=== PATIENT | female | born 1960 | race Caucasian/White ===

== ENCOUNTER 2020-02-07 14:32 | Emergency (ER) | payer OTHER, SELFPAY ==
[2020-02-07] VITALS (7 sets, daily range): BP systolic 127–145; BP diastolic 75–94; PULSE 84–104; RESP 16–20; TEMP 37.2; O2SAT 98–100
--- NOTE | ~2020-02-07 | XR_ITS ---
EXAMINATION: XR chest 2V EXAM DATE: 02/07/2020 17:07 INDICATION: Chest heaviness, nausea and vomiting. Fatigue for 5 days. TECHNIQUE: Frontal and lateral projections of the chest obtained and reviewed. Comparison is made to prior examination from 05/03/2016. FINDINGS: The lungs are clear. There are no pleural effusions. The cardiomediastinal silhouette is within normal limits. There is no pneumothorax suspected. The bones and soft tissues are unremarkab le. IMPRESSION: Normal chest x-ray exam. Reviewed, dictated and finalized at location A. IMPRESSION: Normal chest x-ray exam.
--- NOTE | ~2020-02-07 | CT_ITS ---
EXAMINATION: CT abdomen pelvis w con EXAM DATE: 02/07/2020 17:02 INDICATION: Nausea vomiting and epigastric pain. TECHNIQUE: Spiral CT of the abdomen and pelvis was performed following intravenous injection of 100 m L Omnipaque 350. Axial, coronal and sagittal images were reviewed. The dose-length product (DLP) fo r this examination was 653.98 mGy-cm. The exposure was tailored according to patient size (auto mA e xposure control), and iterative reconstruction (ASIR) was used as additional dose reduction technique . There is no prior study for comparison. FINDINGS: The liver, spleen, adrenal glands and pancreas are unremarkable. Gallbladder is unremarkab le. No biliary obstruction. Portal and splenic veins are patent. Kidneys enhance symmetrically. T here is no hydronephrosis. The uterus is anteverted and morphologically normal. The bladder is un remarkable. There is no retroperitoneal or pelvic lymphadenopathy. The appendix is normal. The stomach and small bowel are unremarkable. There is expected amount of c olonic stool. No free intraperitoneal gas. The heart is normal in size. There are no pericardial or pleural effusions. The lung bases are unremarkable. The bones are unremarkable. IMPRESSION: 1. No acute intra-abdominal findings. Reviewed, dictated and finalized at location A.
[2020-02-07 14:55] LABS: Basophils Percent Auto 0.4 % (0.2-1.2); Eosinophils Absolute Auto 0.2 K/mm3 (0-0.3); Eosinophils Percent Auto 2.5 % (0-4.4); Hematocrit 44.7 % (37.0-47.0); Hemoglobin 14.7 g/dL (12.0-15.0); Immature Granulocyte Absolute 0.01 K/mm3 (0.00-0.031); Immature Granulocyte Percent A 0.1 % (0-0.5); Lymphocytes Absolute Auto 2.63 K/mm3 (0.9-3.2); Lymphocytes Percent Auto 36.6 % (18.3-44.2); Mean Corpuscular HGB Conc 32.9 g/dl (32-36); Mean Corpuscular Hemoglobin 31.1 pg (26-34); Mean Corpuscular Volume 94.5 fl (80-100); Mean Platelet Volume 9.9 fl (7.4-10.4); Monocytes Absolute Auto 0.6 K/mm3 (0.1-0.6); Monocytes Percent Auto 7.7 % (2.6-8.5); Neutrophils Absolute Auto 3.8 K/mm3 (1.3-6.7); Neutrophils Percent Auto 52.7 % (45.5-73.1); Platelet Count Result 279 k/mm3 (150-375); Red Blood Count 4.73 M/mm3 (4.2-5.4); Red Cell Distribution Width 13.1 % (11.5-14.5); White Blood Count 7.2 K/mm3 (4.5-10.0)
[2020-02-07 15:00] LABS: Add Urine Microscopic? YES; Appearance Urine Clear (Clear); Bacteria Urine Trace /hpf; Bilirubin Urine Negative (Negative); Color Urine Yellow (Yellow); Glucose Urine UA Negative (Negative); Ketones Urine Negative (Negative); Leukocyte Esterase Ur 3+ LEU/UL (Negative); Mucus Urine Rare /lpf; Nitrate Urine Negative (Negative); Protein Urine 1+ mg/dL (Negative); RBC Urine 0-2 /hpf (0-2); Specific Grav Ur 1.023 (1.001-1.035); Squamous Epithelial Cell Urine Many /hpf (Few); Urobilinogen Urine Negative mg/dL (<2.0); WBC Urine 21-30 /hpf
[2020-02-07 15:02] LABS: Blood Urine Negative (Negative)
[2020-02-07 15:07] LABS: Alanine Aminotransferase 24 U/L (4-35); Albumin Level 4.3 g/dL (3.5-5.1); Alkaline Phosphatase 80 U/L (38-126); Aspartate Amino Transferase 30 U/L (14-36); Bilirubin,Total 0.5 mg/dL (0.2-1.3); Blood Urea Nitrogen 18 mg/dL (7-17); Calcium 9.1 mg/dL (8.4-10.2); Carbon Dioxide 30 mmol/L (22-30); Chloride 104 mmol/L (98-107); Estimated CRCL calculation 61 ml/min; Estimated Glomerular Filt Rate > 60; Glucose 90 mg/dL (65-105); Lipase 45 U/L (23-300); Sodium 139 mmol/L (137-145)
--- NOTE | 2020-02-07 15:24 | ECG_ITS ---
Measurements Intervals [place] Rate: 79 P: 20 MD: 174 QRS: 11 QRSD: 96 T: 23 QT: 352 QTc: 405 Interpretive Statements SINUS RHYTHM INCOMPLETE RIGHT BUNDLE BRANCH BLOCK BORDERLINE ECG Electronically Signed On 02-07-2020 20:07:57 CDT by Sawyer Nair D.O.
[2020-02-07 15:52] LABS: Troponin I < 0.012 ng/mL (0.000-0.034)
--- NOTE | 2020-02-07 16:43 | ED.NAVMDI ---
HPI - Nausea/Vomiting/Diarrhea General Chief complaint: Nausea/Vomiting/Diarrhea Stated complaint: nausea/gi upset Time Seen by Provider: 02/07/20 15:00 Source: patient Mode of arrival: ambulatory Limitations: no limitations History of Present Illness HPI Narrative: This is a 59 year old female that presents to the ER for nausea and vomiting x 1 week. Reports nightly over the last couple of days she has been having some heartburn symptoms. Reports burning pain that radiates into her chest. Reports it is also associated with some nausea. She has not taken anything for her pain. Happens at night when she is getting ready to go to sleep. Also reports she has had some urinary discomfort. Denies fever, shortness of breath, diarrhea, hematuria. Related Data Home Medications Medication Instructions Recorded Confirmed levothyroxine 75 mcg PO DAILY 02/07/20 metformin 500 mg PO HS 02/07/20 progesterone micronized 200 mg PO HS 02/07/20 testosterone cypionate 200 mg IM [id number] 02/07/20 Allergies Allergy/AdvReac Type Severity Reaction Status Date / Time No Known Allergies Allergy Verified 02/07/20 14:34 Review of Systems Review of Systems: Narrative: CONSTITUTIONAL: Denies fever CARDIOVASCULAR: Reports chest pain. Denies palpitations, or edema. RESPIRATORY: Denies dyspnea. GASTROINTESTINAL: Reports abdominal pain, nausea, vomiting GENITOURINARY: Reports dysuria. Denies hematuria. All systems reviewed & are unremarkable except as noted in HPI and below PMFSH Past Medical History Medical History (Updated 02/07/20 @ 19:18 by Sushila Johnson PA-C) History of diabetes mellitus History of hypothyroidism Family History Family History (Updated 12/25/17 @ 13:11 by DOCTOR UNKNOWN) Mother Family history of osteoporosis Family history of Alzheimer's disease Family history of dementia, Onset Age: 80 Father Hypertension Family history of elevated blood lipids Family history of cardiovascular disease Family history of renal failure Family history of kidney disease, Onset Age: 75 Sibling Family history of cardiovascular disease Social History Social History Smoking status: Never smoker Alcohol intake: current Gender identity (if verbalized by the patient): Female Exam Narrative: Exam Narrative: GENERAL: Well-appearing, obese, and in no acute distress. HEAD: Normocephalic, atraumatic. EYES: EOMI. NECK: No carotid bruits or JVD CHEST: Clear to auscultation. No respiratory distress. No wheezes rales or rhonchi HEART: Regular rate and rhythm. No murmur heard. Normal peripheral pulses. ABDOMEN: Soft, nondistended, normal active bowel sounds. Mild tenderness to palpation of the epigastrium, without guarding EXTREMITIES: Normal range of motion. No edema. SKIN: Warm, dry, no rash. NEURO: No focal deficits. Alert and oriented x3. PSYCH: Normal mood and affect Course Vital Signs Vital signs: Vital Signs Temperature 99 F 02/07/20 14:33 Pulse Rate 98 02/07/20 14:33 Respiratory Rate 18 02/07/20 14:33 Blood Pressure 145/86 H 02/07/20 14:33 Pulse Oximetry 100 02/07/20 14:33 Temperature 99 F 02/07/20 14:33 Pulse Rate 90 02/07/20 19:01 Respiratory Rate 16 02/07/20 19:01 Blood Pressure 131/83 02/07/20 19:01 Pulse Oximetry 100 02/07/20 19:01 MDM - Nausea/Vomiting/Diarrhea MDM Narrative Medical decision making narrative: Patient presents the emergency department for heartburn. Reports nightly over the last couple of days she has been having heartburn symptoms. Reports that is been making her nauseous. Also reports some vomiting. She has not been taking anything for this at home. Patient is afebrile and nontoxic-appearing. Vitals are normal. CBC and metabolic panel without acute findings. UA with white blood cells and leukoesterase. Also with many squamous epithelial cells, unsure if this was not a clean-catch. Patient did report so
[2020-02-07 18:52] LABS: Troponin I < 0.012 ng/mL (0.000-0.034)
== END 2020-02-07 19:55 | disposition home or self-care (01) ==
PROVIDERS: Physician Assistant; Emergency Provider Emergency Medicine; PCP Family Medicine
DX: N30.00 Acute cystitis without hematuria (principal); K21.9 Gastro-esophageal reflux disease without esophagitis; E11.9 Type 2 diabetes mellitus without complications; E03.9 Hypothyroidism, unspecified; Z79.84 Long term (current) use of oral hypoglycemic drugs; I45.10 Unspecified right bundle-branch block
CPT/HCPCS: 36415; 71046; 74177; 80053; 81001; 83690; 84484; 85025; 87086; 87088; 93005; 99284; Q9967

== ENCOUNTER 2020-10-04 09:10 | Outpatient (CLI) | payer OTHER, SELFPAY ==
--- NOTE | 2020-10-27 15:50 | WPDHOMESLEEP ---
Sleep Study - Home Unattended Date of Study: 10/04/20 Ordering Provider: Niecy Borja, BATTERY RECHARGER Interpreting Provider: Tessie Rebolledo MD [facility] Sleep Study Type: Apnea Link Air Height: 1.52 m Weight: 83.915 kg Body Mass Index: 36.1 Neck Circumference (inches): 17.5 [place]: 15 Reason for Sleep Study She falls asleep quickly, cannot stay asleep, wakes herself up snoring Sleep History Moira Cuevas is a 60-year-old female who falls asleep quickly but cannot stay asleep. She can hear herself snoring and this wakes her up. She has had this problem for years. Her dentist tells her that she grinds her teeth. SHe is sleepy around 3:00 p.m. daily, and takes a 30 minute nap when she is able. She drinks Sleepy Time tea at night. Her snoring is frequently loud enough that others complain about it. She occasionally awakens at night with heartburn, belching or coughing. She does not awaken from sleep feeling short of breath. She rarely has trouble sleep with a cold. She does not gasp for breath at night. She does not have breathing problems at night reported to her by others. She constantly sweats excessively at night. She does not notice her heart pounding or beating irregularly at night. She frequently falls asleep during the day, not involuntarily and not while driving. She does not fall asleep while exerting physical effort. She does not have loss of muscle tone was strong emotion. 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 She frequently has vivid dreamlike scenes upon awakening or falling asleep. She is not afraid to go to sleep. She does not have nightmares. She frequently remembers her dreams. She frequently has racing thoughts. She does not feel sad or depressed. She frequently has anxiety. She frequently has muscular tension. She does not notice parts of her body jerking, does not kick at night, does not have crawling and aching feelings in her legs at night and does not have any kind of leg pain during the night. She frequently has morning jaw pain. She frequently grinds her teeth at night which has been confirmed by her dentist. She rarely is bothered by pain during the day, rarely is awakened by pain at night. She occasionally wakes up feeling stiff in the morning, rarely with sore or achy muscles. She frequently wakes up with pain in the neck and spine. She has fatigue and headaches. She has gained 8 lb in the last year. Normal bedtime is 9:00 p.m. usually falling asleep within 5 minutes, waking up between 4 and 6 times at night to urinate, get a drink of water, may watch television for a while. She wakes up at times feeling hot or coughing. These episodes of wake may last 15-20 minutes. her weekend schedule is the same, going to bed at 9:00 p.m. sometimes waking up at 7:00 a.m. or after. She estimates getting 7-8 hours of interrupted sleep. she takes naps in the afternoon or evening. A short nap may be refreshing. She is usually drowsy in the morning for 1 hour or longer. She frequently wakes with morning headaches. She occasionally has memory and concentration problems. She rarely awakens feeling refreshed. Habits: Never smoked tobacco. Caffeine 2 cups in the morning. Decaf tea before bed. Alcohol rarely once a week. No recreational drugs. [facility] Past Medical History Medical History (Updated 10/27/20 @ 16:20 by Tessie Rebolledo MD) History of diabetes mellitus History of hypothyroidism Surgical History Surgical History (Updated 10/27/20 @ 16:17 by Tessie Rebolledo MD) S/P section 1986, 1987 Family History Family History Mother Family history of osteoporosis Family history of Alzheimer's disease Family history of dementia, Onset Age: 80 Father Hypertension Family history of elevated blood li
[2020-10-27 16:10] VITALS: BMI 36.1
== END 2020-10-04 09:11 | disposition home or self-care (01) ==
LOC: ANHCSM 09:11
PROVIDERS: PCP Family Medicine; Visit Provider Nurse Practitioner Family
DX: G47.33 Obstructive sleep apnea (adult) (pediatric) (principal); R53.83 Other fatigue
CPT/HCPCS: 95806

== ENCOUNTER 2021-04-12 17:19 | Emergency (ER) | payer OTHER, SELFPAY ==
--- NOTE | ~2021-04-12 | XR_ITS ---
EXAMINATION: XR foot LT min 3V DATE: 04/12/2021 17:35 INDICATION: Left foot pain post twisting injury TECHNIQUE: Dorsoplantar, two oblique and lateral views of the left foot were obtained. COMPARISON: None. FINDINGS: Alignment is normal. No fracture. Mild polyarticular osteoarthritis involving multiple joints through out the left foot. Achilles and plantar calcaneal spurs. Soft tissues are unremarkable. No left ankle joint effusion. IMPRESSION: 1. Mild polyarticular osteoarthritis throughout the left foot. No acute osseous abnormality. Reviewed, dictated and finalized at location A.
[2021-04-12 17:24] VITALS: BP 132/83; PULSE 106; RESP 16; TEMP 37.1; O2SAT 99
--- NOTE | 2021-04-12 17:54 | ED.LOWEXIN ---
HPI - Extremity Injury (Lower) General Chief Complaint: Extremity Injury, Lower Stated Complaint: INJURED L FOOT Time Seen by Provider: 04/12/21 17:35 Source: patient and RN notes reviewed Mode of arrival: ambulatory Limitations: no limitations History of Present Illness HPI Narrative: Patient presents today complaining of an injury to her left foot x1 week. Patient reports she lost her footing and rolled her left foot and has pain to the medial aspect. She denies pain at rest, but this pain increases to 4/10 with weightbearing. She has been applying ice and taking Tylenol without much relief. Denies numbness or tingling. complaint: foot injury Related Data Allergies Allergy/AdvReac Type Severity Reaction Status Date / Time No Known Allergies Allergy Verified 11/10/20 09:32 Review of Systems Review of Systems: CONSTITUTIONAL: Denies body aches, fever, chills, or sweats. EYES: Denies visual changes, redness, or discharge. ENT: Denies rhinorrhea, congestion, sore throat, or otalgia. CARDIOVASCULAR: Denies chest pain, palpitations, or edema. RESPIRATORY: Denies cough or dyspnea. GASTROINTESTINAL: Denies abdominal pain, nausea, vomiting, or diarrhea. GENITOURINARY: Denies dysuria or hematuria. SKIN: Denies rash, itching, or wounds. MUSCULOSKELETAL: Denies back pain, or myalgia. + Left foot injury NEUROLOGIC: Denies headache, numbness, tingling, or weakness. PSYCH: Denies depression or anxiety. [facility] Past Medical History Medical History History of diabetes mellitus History of hypothyroidism Surgical History Surgical History S/P section 1986, 1987 Family History Family History Mother Family history of osteoporosis Family history of Alzheimer's disease Family history of dementia, Onset Age: 80 Father Hypertension Family history of elevated blood lipids Family history of cardiovascular disease Family history of renal failure Family history of kidney disease, Onset Age: 75 Sibling Family history of cardiovascular disease Social History Social History Smoking status: Never smoker Alcohol intake: current Gender identity (if verbalized by the patient): Female Comments At time of signature, I have reviewed and agree with nursing past medical, surgical, social and family history unless otherwise noted. Please see nursing chart for further information. There is no relevant family history pertinent to the presenting complaint Exam Narrative: GENERAL: Well-appearing, well-nourished, and in no acute distress. HEAD: Normocephalic, atraumatic. EYES: EOMI. No redness or drainage. Conjunctivae normal. ENT: Mucous membranes pink and moist. NECK: Normal AROM. CHEST: No respiratory distress. EXTREMITIES: Left foot: Mild tenderness to the base of the fifth metatarsal with dime size localized swelling without ecchymosis or erythema noted. No deformity noted. Distal sensation intact. Capillary refill normal. Pedal pulse normal. Full range of motion of all toes and ankle. No tenderness to the remainder of the foot. SKIN: Warm, dry, no rash. Capillary refill normal. Normal skin turgor. NEURO: No focal deficits. Alert and oriented x3. Gait steady. PSYCH: Normal affect. No signs of depression or anxiety. Course Vital Signs Vital signs: Vital Signs Temperature 98.7 F 04/12/21 17:24 Pulse Rate 106 H 04/12/21 17:24 Respiratory Rate 16 04/12/21 17:24 Blood Pressure 132/83 04/12/21 17:24 Pulse Oximetry 99 04/12/21 17:24 Temperature 98.7 F 04/12/21 17:24 Pulse Rate 106 H 04/12/21 17:24 Respiratory Rate 16 04/12/21 17:24 Blood Pressure 132/83 04/12/21 17:24 Pulse Oximetry 99 04/12/21 17:24 Revi
== END 2021-04-12 18:04 | disposition home or self-care (01) ==
PROVIDERS: Emergency Provider Nurse Practitioner; PCP Family Medicine
DX: S93.602A Unspecified sprain of left foot, initial encounter (principal); X50.9XXA Other and unspecified overexertion or strenuous movements or postures, initial encounter; E11.9 Type 2 diabetes mellitus without complications; E03.9 Hypothyroidism, unspecified
CPT/HCPCS: 73630; 99213; G0463

== ENCOUNTER 2021-04-27 10:27 | Outpatient (CLI) | payer OTHER, SELFPAY ==
--- NOTE | ~2021-04-27 | XR_ITS ---
EXAMINATION: XR foot LT min 3V DATE: 04/27/2021 10:59 INDICATION: Lateral sided left foot pain. TECHNIQUE: Dorsoplantar, two oblique and lateral views of the left foot were obtained. COMPARISON: 04/12/2021 FINDINGS: Alignment is normal. No fracture. Again seen is mild polyarticular osteoarthritis involving multiple joints throughout the left foot. No erosions or periosteal reaction. Moderate-sized Achilles and smal l plantar calcaneal spurs. Soft tissues are unremarkable. IMPRESSION: 1. Mild polyarticular osteoarthritis throughout the left foot. No acute osseous abnormality. Reviewed, dictated and finalized at location B.
== END 2021-04-27 10:28 | disposition home or self-care (01) ==
LOC: ANHIMG 10:32
PROVIDERS: PCP Family Medicine; Visit Provider Family Medicine
DX: M19.072 Primary osteoarthritis, left ankle and foot (principal); M79.672 Pain in left foot
CPT/HCPCS: 73630

== ENCOUNTER 2021-05-13 08:08 | Outpatient (CLI) | payer OTHER, SELFPAY ==
--- NOTE | ~2021-05-13 | MM_ITS ---
EXAMINATION: MM screening [place] BI w nuvia HISTORY: Screening mammogram TECHNIQUE: Craniocaudal and mediolateral oblique 3-D tomosynthesis images were obtained and synthetic 2-D images were generated. CAD analysis was submitted and interpreted. COMPARISON: 08/14/2019, 12/19/2017, 09/07/2016 bilateral digital screening mammogram examinations BREAST PARENCHYMAL COMPOSITION: There are scattered areas of fibroglandular density. FINDINGS: There is no evidence of suspicious mass, calcification, or architectural distortion to sugg est malignancy in either breast. There has been no suspicious interval change. IMPRESSION: 1. No mammographic evidence of malignancy. 2. Recommend routine screening mammography in one year. BI-RADS Category 1: Negative Reviewed, dictated and finalized at location A.
--- NOTE | ~2021-05-13 | DEXA_ITS ---
Bone Density Report Name: Moira Cuevas Age: 60 Sex: Female Ethnicity: White Date of : 1960 Indication: osteopenia; parental hip fracture; postmenopausal Referring Provider: Severo, Sowmya Montoya Study: Bone densitometry was performed. Exam Date: May 13, 2021 Accession number: [id number] Bone Density: Region BMD T-score Z-score Classification AP Spine (L1-L4) 0.879 -1.5 0.0 Osteopenia Femoral Neck (Left) 0.669 -1.6 -0.3 Osteopenia Total Hip (Left) 0.794 -1.2 -0.2 Osteopenia Total Hip Bilateral Avg 0.812 -1.0 -0.1 Osteopenia Femoral Neck (Right) 0.656 -1.7 -0.4 Osteopenia Total Hip (Right) 0.828 -0.9 0.1 Normal World Health Organization criteria for BMD impression classify patients as: Normal (T-score at or above -1.0), Osteopenia (T-score between -1.0 and -2.5), or Osteoporosis (T-score at or below -2.5). 10-year Fracture Risk(1): Major Osteoporotic Fracture 16% Hip Fracture 0.9% Reported Risk Factors: [place] (), Neck BMD=0.656, BMI=35.7, parental fracture (1) FRAX(R) Version 3.08. Fracture probability calculated for an untreated patient. Fracture probability may be lower if the patient has received treatment. Previous Exams: Region Exam Age BMD T-score BMD Change BMD Change Date g/cm2 vs Baseline vs Previous AP Spine(L1-L4) 05/13/2021 60 0.879 -1.5 -0.175(-16.6%) -0.038(-4.2%)* 12/19/2017 57 0.917 -1.2 -0.137(-13.0%) -0.137(-13.0%) 09/21/2005 45 1.054 0.1 Total Hip(Left) 05/13/2021 60 0.794 -1.2 -0.037(-4.4%)# -0.089(-10.1%) 12/19/2017 57 0.883 -0.5 0.052(6.3%)# 0.052(6.3%)# 09/21/2005 45 0.831 -0.9 Total Hip(Right) 05/13/2021 60 0.828 -0.9 -0.023(-2.7%)# -0.062(-7.0%)* 12/19/2017 57 0.890 -0.4 0.039(4.6%)# 0.039(4.6%)# 09/21/2005 45 0.851 -0.7 *Denotes significance at 95% confidence level, LSC for AP Spine = 0.022 g/cm2, LSC for Total Hip = 0.027 g/cm2 Clinical Information Provided by Patient: Parent has had a hip fracture Has used the following medications: Vitamin D, Calcium Patient maximum height was 59.5 Menopause Age: 57 Drinks caffeinated beverages Onset of menses at age 12 Number of children 2 Impression: The patient has low bone mass, based on the Right Femoral Neck T-score. The patient has an estimated ten-year risk of hip fracture of 0.9% and an estimated ten-year risk of major fracture of 16%, based on the WHO FRAX algorithm. The patient has risk fact
== END 2021-05-13 08:09 | disposition home or self-care (01) ==
PROVIDERS: PCP Family Medicine; Visit Provider Internal Medicine Endocrinology, Diabetes & Metabolism
DX: Z12.31 Encounter for screening mammogram for malignant neoplasm of breast (principal); Z78.0 Asymptomatic menopausal state; M85.89 Other specified disorders of bone density and structure, multiple sites
CPT/HCPCS: 77063; 77067; 77080

== ENCOUNTER 2021-08-08 09:16 | Outpatient (RCR) | payer OTHER, SELFPAY ==
[2021-08-08 14:22] VITALS: BP 129/85; PULSE 101; RESP 16; TEMP 36.6; O2SAT 100
[2021-08-08] MEDS: diphenhydrAMINE HCl CAP 25 MG CAPSULE PO (14:27)
[2021-08-08] MEDS: ACETAMINOPHEN 325 MG TABLET 650 MG PO (14:27)
[2021-08-08] MEDS: FAMOTIDINE 20 MG TABLET PO (14:28)
[2021-08-08 15:51] VITALS: BP 122/68
--- NOTE | 2021-08-09 10:29 | PC.NURSE ---
Called Ms Cuevas and she stated she is feeling much better today. She has no other questions at this time.
== END 2021-08-08 17:00 ==
LOC: AMCINF 09:16
PROVIDERS: PCP Physician Assistant; Visit Provider Internal Medicine Hematology & Oncology
DX: U07.1 COVID-19 (principal)
CPT/HCPCS: A9270; M0243; Q0243

== ENCOUNTER 2022-03-10 11:19 | Emergency (ER) | payer OTHER, SELFPAY ==
--- NOTE | 2022-03-10 11:25 | ED.SKABFB ---
HPI - Skin/Abscess/Foreign Bdy General Chief complaint: Skin/Abscess/Foreign Body Stated complaint: RASH Time Seen by Provider: 03/10/22 11:32 Source: patient and RN notes reviewed Mode of arrival: ambulatory Limitations: no limitations History of Present Illness HPI narrative: 61-year-old female presents to the [facility] with left wrist volar aspect rash since Sunday, 3 days. Has been washing it with bleach, placing hydrocortisone on it, taking Benadryl. Also has the rash to her left lower abdomen and under her chin. MD complaint: rash Related Data Home Medications Medication Instructions Recorded Confirmed semaglutide 0.25 mg or 0.5 mg (2 1 ea subcut WEEKLY 03/10/22 03/10/22 mg/1.5 mL) subcutaneous pen injector (Brand [employer]mp[employer]) Allergies Allergy/AdvReac Type Severity Reaction Status Date / Time No Known Allergies Allergy Verified 03/10/22 11:37 Review of Systems Review of Systems: All systems reviewed & are unremarkable except as noted in HPI and below Constitutional: Constitutional: Reports no additional constitutional complaints, Denies chills and Denies fever(s) Eyes: Eyes: Reports no additional eye complaints ENT: Reports system reviewed and no additional complaints, except as documented Cardiovascular: Cardiovascular: Reports no additional cardiovascular complaints Respiratory: Respiratory: Reports no additional respiratory complaints Gastrointestinal: Gastrointestinal: Reports no additional gastrointestinal complaints Musculoskeletal: Musculoskeletal: Reports no additional musculoskeletal complaints Integumentary/Breasts: Skin/Breast: Reports as per HPI, Reports pruritus and Reports rash Neurologic: Reports system reviewed and no additional complaints, except as documented Psychiatric: Psychiatric: Reports no additional psychiatric complaints Allergic/Immunologic: Allergic/Immunologic: Reports no additional allergic/immunologic complaints [facility] Past Medical History Medical History History of diabetes mellitus History of hypothyroidism Surgical History Surgical History S/P section 1986, 1987 Family History Family History Mother Family history of osteoporosis Family history of Alzheimer's disease Family history of dementia, Onset Age: 80 Father Hypertension Family history of elevated blood lipids Family history of cardiovascular disease Family history of renal failure Family history of kidney disease, Onset Age: 75 Sibling Family history of cardiovascular disease Social History Social History Alcohol intake: current Gender identity (if verbalized by the patient): Female Spiritual care concerns: No Comments At the time of my signature, I reviewed and agree with the nursing past medical, surgical, social, and family history. There is no relevant family history pertinent to the patient complaint. Exam Const: General: healthy appearing, no acute distress and alert Nutritional Appearance: well nourished and obese Orientation/consciousness: patient oriented x3 Limitations: no limitations HENMT: Head: normal to inspection Ears: external ears normal Face and sinus: normal facial exam Mouth: Yes Normal oral and palatal mucosa present Throat: posterior oropharynx normal Eyes: General: appearance normal, both eyes and all related structures Pupils: Equal, round and reactive pupils present Neck: Neck: normal visual inspection, no lymphadenopathy and no meningeal signs Chest: Chest palpation & inspection: normal inspection of the chest Resp: Effort & Inspection: normal respiratory effort and no use of accessory muscles Auscultation: clear to auscultation bilaterally, no crackles, no rales, no rhonchi and no wheezes
[2022-03-10 11:37] VITALS: BP 137/98; PULSE 82; RESP 16; TEMP 36.8; O2SAT 100
[2022-03-10 11:38] VITALS: BP 137/98; PULSE 82; RESP 16; TEMP 36.8; O2SAT 100
== END 2022-03-10 11:55 | disposition home or self-care (01) ==
PROVIDERS: Emergency Provider Nurse Practitioner; PCP Family Medicine
DX: L25.9 Unspecified contact dermatitis, unspecified cause (principal); L23.7 Allergic contact dermatitis due to plants, except food; S00.86XA Insect bite (nonvenomous) of other part of head, initial encounter; W57.XXXA Bitten or stung by nonvenomous insect and other nonvenomous arthropods, initial encounter; E11.9 Type 2 diabetes mellitus without complications; E03.9 Hypothyroidism, unspecified
CPT/HCPCS: 99213; G0463

== ENCOUNTER → 2022-08-23 12:49 | Outpatient (CLI) | payer OTHER, SELFPAY ==
--- NOTE | ~2022-08-23 | XR_ITS ---
Clinical Indication: Bronchitis, cough PA and lateral views of the chest: Comparison: 02/07/2020 Findings: The lungs are clear, without evidence of focal consolidation or pleural effusion. Cardiome diastinal silhouette is within normal limits. Bones and soft tissues are unremarkable. Impression: Normal chest. Reviewed, dictated and finalized at location . [employer] Impression: Normal chest.
== END ==
PROVIDERS: PCP Nurse Practitioner; Visit Provider Nurse Practitioner
DX: R05.9 Cough, unspecified (principal); J40 Bronchitis, not specified as acute or chronic
CPT/HCPCS: 71046

== ENCOUNTER 2023-01-26 12:30 | Emergency (ER) | payer OTHER, SELFPAY ==
--- NOTE | 2023-01-26 12:32 | ED.URI ---
HPI - URI/Sore Throat General Chief Complaint: Upper Respiratory Infection Stated Complaint: SINUS CONGESTION Time Seen by Provider: 01/26/23 12:32 Source: patient Mode of arrival: ambulatory Limitations: no limitations History of Present Illness HPI Narrative: Patient is a 62-year-old female that presents with sinus congestion that started this morning. Patient took at home COVID test and it was negative. Denies any fever, chills, ear pain, sore throat, cough, nausea, vomiting, diarrhea. Has taken [id number] Tylenol cold and flu with mild relief. Does not take a daily allergy medicine Related Data Home Medications Medication Instructions Recorded Confirmed cholecalciferol (vitamin D3) 50 50 mcg PO DAILY 07/06/22 01/26/23 mcg (2,000 unit) capsule metformin 500 mg tablet,extended 500 mg PO DAILY 07/06/22 01/26/23 release 24hr multivitamin (Daily Multi-Vitamin 1 tablet PO DAILY 07/06/22 01/26/23 tablet) vitamin B complex (B 1 tablet PO DAILY 07/06/22 01/26/23 Complex-Vitamin B12 tablet) Allergies Allergy/AdvReac Type Severity Reaction Status Date / Time No Known Allergies Allergy Verified 01/26/23 12:47 Review of Systems Review of Systems: All systems reviewed & are unremarkable except as noted in HPI and below Constitutional: Constitutional: Denies body ache(s), Denies chills, Denies fatigue, Denies fever(s), Denies headache(s), Denies malaise and Denies weakness Eyes: Eyes: Denies blurry vision, Denies irritation and Denies loss of vision ENT: Denies otalgia, Denies headache(s), Reports nasal congestion, Denies nasal discharge, Denies sinus pain and Denies sore throat Cardiovascular: Cardiovascular: Denies chest pain, Denies irregular heart rhythm and Denies dyspnea Respiratory: Respiratory: Denies cough and Denies dyspnea Gastrointestinal: Gastrointestinal: Denies abdominal pain, Denies melena, Denies hematochezia, Denies diarrhea, Denies nausea and Denies vomiting Musculoskeletal: Musculoskeletal: Denies back pain, Denies myalgias and Denies arthralgias Integumentary/Breasts: Skin/Breast: Denies pruritus and Denies rash Neurologic: Denies headache(s), Denies loss of vision and Denies weakness Psychiatric: Psychiatric: Reports no additional psychiatric complaints Endocrine: Endocrine: Denies fatigue Allergic/Immunologic: Allergic/Immunologic: Denies itchy eyes PMFSH Past Medical History Medical History History of diabetes mellitus History of hypothyroidism Surgical History Surgical History S/P section 1986, 1987 Family History Family History Mother Family history of osteoporosis Family history of Alzheimer's disease Family history of dementia, Onset Age: 80 Father Hypertension Family history of elevated blood lipids Family history of cardiovascular disease Family history of renal failure Family history of kidney disease, Onset Age: 75 Sibling Family history of cardiovascular disease Social History Social History Smoking status: Never smoker Alcohol intake: current Alcohol use details: socially Substance use: never Substance use type: does not use Lack of Transportation: No Lack of Food: Never True Current Housing: I Have Housing Concerned About Future Housing: No Difficulty Paying Gas/Electric Bills: No Difficulty Paying for Meds: No Currently Unemployed: No Education: Associate Degree Difficulty w/ Childcare or Family Care: No Living arrangements: with family Occupation/Education: occupation Gender identity (if verbalized by the patient): Female Sexual Orientation (if Verbalized by the Patient): Straight or Heterosexual Spiritual care concerns: No Agree to blood produ
[2023-01-26 12:44] VITALS: BP 155/87; PULSE 98; RESP 16; TEMP 36.4; O2SAT 100
== END 2023-01-26 13:44 | disposition home or self-care (01) ==
PROVIDERS: Emergency Provider Nurse Practitioner Family; PCP Family Medicine
DX: J06.9 Acute upper respiratory infection, unspecified (principal); E11.9 Type 2 diabetes mellitus without complications; E03.9 Hypothyroidism, unspecified
CPT/HCPCS: 99213; G0463

== ENCOUNTER 2023-02-02 12:50 | Emergency (ER) | payer OTHER, SELFPAY ==
--- NOTE | ~2023-02-02 | XR_ITS ---
EXAMINATION: XR chest 2V DATE: 02/02/2023 13:23 INDICATION: Cough and shortness of breath. TECHNIQUE: Frontal and lateral views of the chest were obtained. COMPARISON: Chest 2 views 08/23/2022 FINDINGS: There is mild atelectasis in left lower lung zone. No pleural effusion or pneumothorax. The heart size is normal. IMPRESSION: 1. Mild atelectasis in left lower lung zone. Reviewed, dictated and finalized at location A.
[2023-02-02 12:58] VITALS: BP 134/91; PULSE 96; RESP 16; TEMP 36.8; O2SAT 100
[2023-02-02 13:01] VITALS: BP 134/91; PULSE 96; RESP 16; TEMP 36.8; O2SAT 100
--- NOTE | 2023-02-02 13:22 | ED.URI ---
HPI - URI/Sore Throat General Chief Complaint: Upper Respiratory Infection Stated Complaint: bodyache,fatigue,shortness of breath Time Seen by Provider: 02/02/23 13:00 Source: patient Mode of arrival: ambulatory Limitations: no limitations History of Present Illness HPI Narrative: Moira is a 62-year-old female patient presenting to clinic today with complaints of fatigue, shortness breath, and body aches. She reports that symptoms began Sunday night or early Sunday morning. Has taken 2 at home COVID test and they were both negative. She was seen here last on January 26 for the symptoms was given prescription for prednisone and albuterol inhaler. States at that time she loss sense of taste and smell. States she has had a very low-grade temperature of 99.9 ?F elicited complaint: sore throat and nasal congestion Related Data Home Medications Medication Instructions Recorded Confirmed cholecalciferol (vitamin D3) 50 50 mcg PO DAILY 07/06/22 02/02/23 mcg (2,000 unit) capsule metformin 500 mg tablet,extended 500 mg PO DAILY 07/06/22 02/02/23 release 24hr multivitamin (Daily Multi-Vitamin 1 tablet PO DAILY 07/06/22 02/02/23 tablet) vitamin B complex (B 1 tablet PO DAILY 07/06/22 02/02/23 Complex-Vitamin B12 tablet) valacyclovir 1 gram tablet 1,000 mg PO PRN PRN Rash 02/02/23 02/02/23 Allergies Allergy/AdvReac Type Severity Reaction Status Date / Time No Known Allergies Allergy Verified 02/02/23 12:58 Review of Systems Review of Systems: Pertinent positives per HPI. Patient denies any fever, chills, rash, headache, visual changes, dizziness, cough, shortness of breath, chest pain, palpitations, nausea, vomiting, diarrhea, constipation, abdominal pain, or any urinary issues. [facility] Past Medical History Medical History History of diabetes mellitus History of hypothyroidism Surgical History Surgical History S/P section 1986, 1987 Family History Family History Mother Family history of osteoporosis Family history of Alzheimer's disease Family history of dementia, Onset Age: 80 Father Hypertension Family history of elevated blood lipids Family history of cardiovascular disease Family history of renal failure Family history of kidney disease, Onset Age: 75 Sibling Family history of cardiovascular disease Social History Social History Smoking status: Never smoker Alcohol intake: current Alcohol use details: socially Substance use: never Substance use type: does not use Lack of Transportation: No Lack of Food: Never True Current Housing: I Have Housing Concerned About Future Housing: No Difficulty Paying Gas/Electric Bills: No Difficulty Paying for Meds: No Currently Unemployed: No Education: Associate Degree Difficulty w/ Childcare or Family Care: No Living arrangements: with family Occupation/Education: occupation Gender identity (if verbalized by the patient): Female Sexual Orientation (if Verbalized by the Patient): Straight or Heterosexual Spiritual care concerns: No Agree to blood products: Yes Comments At the time of my signature, I reviewed and agree with the nursing past medical, surgical, social, and family history. There is no relevant family history pertinent to the patient complaint. Exam Narrative: General: Well-developed, well nourished, in no apparent distress Head: Normocephalic, atraumatic Eyes: Pupils equally round and reactive to light bilaterally, EOM intact, sclera and conjunctive clear, no discharge, lids normal Ears: TMs intact and congestive, ear canals clear, no drainage, grossly hearing normal. Nose: Nares patent, clear nasal discharge, no
== END 2023-02-02 13:45 | disposition home or self-care (01) ==
PROVIDERS: Emergency Provider Nurse Practitioner Family; PCP Family Medicine
DX: J98.11 Atelectasis (principal); R06.02 Shortness of breath; E11.9 Type 2 diabetes mellitus without complications; E03.9 Hypothyroidism, unspecified
CPT/HCPCS: 71046; 87804; 99213; G0463

== ENCOUNTER 2023-02-02 18:45 | Emergency (ER) | payer OTHER, SELFPAY ==
[2023-02-02] VITALS (24 sets, daily range): BP systolic 113–152; BP diastolic 72–102; PULSE 81–91; RESP 16–23; TEMP 36.3; O2SAT 94–100
--- NOTE | ~2023-02-02 | CT_ITS ---
EXAMINATION: CTA chest PE protocol DATE: 02/02/2023 21:41 INDICATION: Dyspnea and chest burning sensation TECHNIQUE: Computed tomography (CT) pulmonary angiogram of the chest was performed with 100 mL Omnipa que-350 intravenous contrast. Additional 3D reconstructions utilizing coronal maximum intensity proje ction (MIP) were performed. Automated exposure control and iterative reconstruction technique were em ployed. The dose-length product was 438.33 mGy-cm. COMPARISON: None FINDINGS: No pulmonary embolism. Mild discoid atelectasis at the anterior basilar left lower lobe and adjacent lingula. No pneumonia, pulmonary edema, pleural effusion or pneumothorax. Heart size is normal. No pe ricardial effusion. Thoracic aorta is normal in caliber with no dissection. No pathologically enlarge d thoracic lymphadenopathy. Mild S-shaped curvature in the upper thoracic spine with mild spondylosis . IMPRESSION: 1. Mild left basilar atelectasis. No pulmonary embolism or other acute cardiopulmonary disease. Reviewed, dictated and finalized at location A. IMPRESSION: 1. Mild left basilar atelectasis. No pulmonary embolism or other acute cardiopu lmonary disease.
--- NOTE | 2023-02-02 18:55 | ECG_ITS ---
Measurements Intervals [place] Rate: 87 P: 45 ID: 175 QRS: 16 QRSD: 106 T: 32 QT: 339 QTc: 410 Interpretive Statements SINUS RHYTHM INCOMPLETE RIGHT BUNDLE BRANCH BLOCK [90+ ms QRS DURATION, TERMINAL R IN V1/V2, 40+ ms S IN I/aVL/V4/V5/V6] COMPARED TO ECG 02/07/2020 15:36:30 NO SIGNIFICANT CHANGES Electronically Signed On 02-03-2023 9:38:01 CDT by Mahi Rangel M.D.
[2023-02-02 19:08] LABS: Basophils Absolute Auto 0.1 K/mm3 (0.0-0.1); Basophils Percent Auto 0.7 % (0.2-1.2); Eosinophils Absolute Auto 0.3 K/mm3 (0-0.3); Eosinophils Percent Auto 3.3 % (0-4.4); Hematocrit 46.1 % (37.0-47.0); Hemoglobin 15.3 g/dL (12.0-15.0); Immature Granulocyte Absolute 0.01 K/mm3 (0.00-0.031); Immature Granulocyte Percent A 0.1 % (0-0.5); Lymphocytes Absolute Auto 3.33 K/mm3 (0.9-3.2); Lymphocytes Percent Auto 38.7 % (18.3-44.2); Mean Corpuscular HGB Conc 33.2 g/dl (32-36); Mean Corpuscular Volume 93.5 fl (80-100); Mean Platelet Volume 10.5 fl (7.4-10.4); Monocytes Absolute Auto 0.6 K/mm3 (0.1-0.6); Monocytes Percent Auto 7.2 % (2.6-8.5); Neutrophils Absolute Auto 4.3 K/mm3 (1.3-6.7); Platelet Count Result 229 k/mm3 (150-375); Red Blood Count 4.93 M/mm3 (4.2-5.4); Red Cell Distribution Width 13.1 % (11.5-14.5); White Blood Count 8.6 K/mm3 (4.5-10.0)
[2023-02-02 19:17] LABS: INR 0.9; Prothrombin Time 12.8 Seconds (11.1-14.7)
[2023-02-02 19:18] LABS: Partial Thromboplastin Time 30.1 SECONDS (22.3-36.8)
[2023-02-02 19:21] LABS: Alanine Aminotransferase 29 U/L (6-35); Albumin Level 4.5 g/dL (3.5-5.1); Alkaline Phosphatase 68 U/L (38-126); Anion Gap 7 mmol/L (8-16); Aspartate Amino Transferase 28 U/L (14-36); Bilirubin,Total 0.5 mg/dL (0.2-1.3); Blood Urea Nitrogen 22 mg/dL (7-17); Calcium 9.2 mg/dL (8.4-10.2); Carbon Dioxide 31 mmol/L (22-30); Chloride 103 mmol/L (98-107); Estimated CRCL calculation 62 ml/min; Estimated Glomerular Filt Rate > 60; Glucose 105 mg/dL (65-110); Lipase 218 U/L (23-300); Potassium 3.6 mmol/L (3.4-5.0); Sodium 141 mmol/L (137-145)
[2023-02-02 19:31] LABS: Troponin I < 0.012 ng/mL (0.000-0.034)
[2023-02-02] MEDS: BENZONATATE 100 MG CAPSULE 200 MG PO (21:15)
[2023-02-02 21:40] LABS: NT Pro B Type Natriuretic Pept < 20 pg/mL (19.9-100)
[2023-02-02 21:54] LABS: Strep Group A RT-PCR NOT DETECTED (Negative)
[2023-02-02 22:05] LABS: Influenza A QL RT-PCR Negative (Negative); Influenza B QL RT-PCR Negative (Negative); RSV RNA, RT-PCR Negative (Negative); SARS-CoV-2 RNA PCR Negative (Negative)
--- NOTE | 2023-02-02 23:19 | PC.NURSE ---
This RN assumed care of patient.
--- NOTE | 2023-02-02 23:42 | ED.GENADULT ---
HPI - General Adult General Chief complaint: Chest Pain Stated complaint: high bp, chest soreness, back pain Time Seen by Provider: 02/02/23 20:40 History of Present Illness HPI narrative: Patient 62-year-old female who presents the emergency department with chief complaint of cough and chest discomfort. Patient reports that she is been seen in urgent care twice over the last week after she had been having a cough its been productive of sputum. Patient states that she has had no fever patient states she did lose smell and taste and is concerned she may have COVID again. Patient reports she has been tested for COVID but has been negative with the non-PCR test. The patient reports that with all the coughing she has had discomfort in her chest and in her back patient states the pain is a pressure but also there is a sharp component to it as well the patient reports she been treated with an inhaler and with steroids Related Data Home Medications Medication Instructions Recorded Confirmed cholecalciferol (vitamin D3) 50 50 mcg PO DAILY 07/06/22 02/02/23 mcg (2,000 unit) capsule metformin 500 mg tablet,extended 500 mg PO DAILY 07/06/22 02/02/23 release 24hr multivitamin (Daily Multi-Vitamin 1 tablet PO DAILY 07/06/22 02/02/23 tablet) vitamin B complex (B 1 tablet PO DAILY 07/06/22 02/02/23 Complex-Vitamin B12 tablet) valacyclovir 1 gram tablet 1,000 mg PO PRN PRN Rash 02/02/23 02/02/23 Allergies Allergy/AdvReac Type Severity Reaction Status Date / Time No Known Allergies Allergy Verified 02/02/23 12:58 Review of Systems Review of Systems: A 10 system review of systems was completed on the patient and is negative except for what is stated in the HPI. Nursing and ancillary documentation was reviewed. [facility] Past Medical History Medical History History of diabetes mellitus History of hypothyroidism Surgical History Surgical History S/P section 1986, 1987 Family History Family History Mother Family history of osteoporosis Family history of Alzheimer's disease Family history of dementia, Onset Age: 80 Father Hypertension Family history of elevated blood lipids Family history of cardiovascular disease Family history of renal failure Family history of kidney disease, Onset Age: 75 Sibling Family history of cardiovascular disease Social History Social History Smoking status: Never smoker Alcohol intake: current Alcohol use details: socially Substance use: never Substance use type: does not use Lack of Transportation: No Lack of Food: Never True Current Housing: I Have Housing Concerned About Future Housing: No Difficulty Paying Gas/Electric Bills: No Difficulty Paying for Meds: No Currently Unemployed: No Education: Associate Degree Difficulty w/ Childcare or Family Care: No Living arrangements: with family Occupation/Education: occupation Gender identity (if verbalized by the patient): Female Sexual Orientation (if Verbalized by the Patient): Straight or Heterosexual Spiritual care concerns: No Agree to blood products: Yes Exam Narrative: GENERAL: Well-appearing, well-nourished, and in no acute distress. HEAD: Normocephalic, atraumatic. EYES: PERRLA and EOMI. ENT: Nares clear, no rhinorrhea or epistaxis. Mucous membranes moist. NECK: Supple. CHEST: Clear to auscultation. No respiratory distress. Chest wall is tender to palpation lower left sternal border HEART: Regular rate and rhythm. No murmur heard. Normal peripheral pulses. ABDOMEN: Soft, nontender, nondistended, normal active bowel sounds. EXTREMITIES: Normal range of motion. No edema. SKIN: Warm, dry, no
== END 2023-02-03 00:01 | disposition home or self-care (01) ==
PROVIDERS: Emergency Medicine; Emergency Provider Emergency Medicine; PCP Family Medicine
DX: J06.9 Acute upper respiratory infection, unspecified (principal); R07.89 Other chest pain; Z20.822 Contact with and (suspected) exposure to COVID-19; E11.9 Type 2 diabetes mellitus without complications; E03.9 Hypothyroidism, unspecified; Z79.84 Long term (current) use of oral hypoglycemic drugs; I45.10 Unspecified right bundle-branch block
CPT/HCPCS: 36415; 71046; 71275; 80053; 83690; 83880; 84484; 85025; 85610; 85730; 87637; 87651; 87804; 93005; 99284; A9270; Q9967

== ENCOUNTER 2023-07-20 11:15 | Emergency (ER) | payer OTHER, SELFPAY ==
[2023-07-20 11:34] VITALS: BP 134/86; PULSE 124; RESP 16; TEMP 37.8; O2SAT 97
--- NOTE | 2023-07-20 11:57 | ED.URI ---
HPI - URI/Sore Throat General Chief Complaint: Upper Respiratory Infection Stated Complaint: Fever;Nausea;Chills Time Seen by Provider: 07/20/23 11:47 Source: patient and RN notes reviewed Mode of arrival: ambulatory Limitations: no limitations History of Present Illness HPI Narrative: Patient presents today complaining of chills, vomiting, fever up to 105, and headache since last night. Denies cough, sore throat, or any additional upper respiratory symptoms. She took 1 dose of Excedrin last night for her headache. She has received her flu vaccine this season. Related Data Home Medications Medication Instructions Recorded Confirmed cholecalciferol (vitamin D3) 50 50 mcg PO DAILY 07/06/22 07/20/23 mcg (2,000 unit) capsule Allergies Allergy/AdvReac Type Severity Reaction Status Date / Time No Known Allergies Allergy Verified 07/20/23 11:24 Review of Systems Review of Systems: CONSTITUTIONAL: Denies body aches, or sweats.+ fever, chills EYES: Denies visual changes, redness, or discharge. ENT: Denies rhinorrhea, congestion, sore throat, or otalgia. CARDIOVASCULAR: Denies chest pain, palpitations, or edema. RESPIRATORY: Denies cough or dyspnea. GASTROINTESTINAL: Denies abdominal pain, nausea, or diarrhea.+ vomiting GENITOURINARY: Denies dysuria or hematuria. SKIN: Denies rash, itching, or wounds. MUSCULOSKELETAL: Denies back pain, joint pain, or myalgia. NEUROLOGIC: Denies numbness, tingling, or weakness.+ headache PSYCH: Denies depression or anxiety. [facility] Past Medical History Medical History History of diabetes mellitus History of hypothyroidism Surgical History Surgical History S/P section 1986, 1987 Family History Family History Mother Family history of osteoporosis Family history of Alzheimer's disease Family history of dementia, Onset Age: 80 Father Hypertension Family history of elevated blood lipids Family history of cardiovascular disease Family history of renal failure Family history of kidney disease, Onset Age: 75 Sibling Family history of cardiovascular disease Social History Social History Smoking status: Never smoker Alcohol intake: current Alcohol use details: socially Substance use: never Substance use type: does not use Lack of Transportation: No Lack of Food: Never True Current Housing: I Have Housing Concerned About Future Housing: No Difficulty Paying Gas/Electric Bills: No Difficulty Paying for Meds: No Currently Unemployed: No Education: Associate Degree Difficulty w/ Childcare or Family Care: No Living arrangements: with family Occupation/Education: occupation Gender identity (if verbalized by the patient): Female Sexual Orientation (if Verbalized by the Patient): Straight or Heterosexual Spiritual care concerns: No Agree to blood products: Yes Comments At time of signature, I have reviewed and agree with nursing past medical, surgical, social and family history unless otherwise noted. Please see nursing chart for further information. There is no relevant family history pertinent to the presenting complaint Exam Narrative: GENERAL: Well-appearing, well-nourished, and in no acute distress. HEAD: Normocephalic, atraumatic. EYES: EOMI. No redness or drainage. Conjunctivae normal. ENT: Mucous membranes pink and moist. Nares clear. No rhinorrhea. TMs normal bilaterally. Throat normal. Uvula midline. NECK: Normal AROM. Supple. No lymphadenopathy. CHEST: No respiratory distress. Clear to auscultation. HEART: Regular rate and rhythm. No murmur appreciated. ABDOMEN: Soft, nontender, nondistended, normal active bowel sounds. EXTREMITIES: No
== END 2023-07-20 12:08 | disposition home or self-care (01) ==
PROVIDERS: Emergency Provider Nurse Practitioner; PCP Family Medicine
DX: J10.1 Influenza due to other identified influenza virus with other respiratory manifestations (principal); Z20.822 Contact with and (suspected) exposure to COVID-19; E11.9 Type 2 diabetes mellitus without complications; E03.9 Hypothyroidism, unspecified
CPT/HCPCS: 87426; 87804; 99213; C9803; G0463

== ENCOUNTER 2023-08-08 00:47 | Day surgery (SDC) | payer OTHER, SELFPAY ==
[2023-07-24 09:53] VITALS: BMI 38.7
--- NOTE | 2023-08-06 09:09 | SUR.PREOP ---
Patient called regarding upcoming procedure. Reviewed preop instructions, appointment times, and procedure prep.
--- NOTE | 2023-08-07 18:09 | PM.HPGS ---
History of Present Illness History of Present Illness Consent: Risks, benefits, and alternatives have been discussed and questions answered. Patient agrees to proceed with procedure. Chief complaint: hx of colon polyps,Eructation Narrative: Moira Cuevas is a 63 year old female Referred for colon cancer screening. She had polyps removed at the time of her colonoscopy 10 years ago. Five years ago she had a normal colonoscopy. she has become somewhat constipated and her stools lately are like small balls. She has also been bothered by excessive eructation. Even drinking a sip of water she will burp. She also has a tender spot in the epigastric area. She has been on omeprazole for over a month but it has not made a difference. She has lost about 7 lb. She tripped was pr that the fact that after having COVID 3 times, she has lost her sense of smell and food is not interesting. Her usual breakfast is a piece of toast or perhaps some oatmeal Review of Systems Review of Systems: All systems reviewed & are unremarkable except as noted in HPI and below PMFSH Past Medical History Medical History History of diabetes mellitus History of hypothyroidism Surgical History Surgical History S/P section 1986, 1987 Family History Family History Mother Family history of osteoporosis Family history of Alzheimer's disease Family history of dementia, Onset Age: 80 Father Hypertension Family history of elevated blood lipids Family history of cardiovascular disease Family history of renal failure Family history of kidney disease, Onset Age: 75 Sibling Family history of cardiovascular disease Social History Social History Smoking status: Never smoker Alcohol intake: current Alcohol use details: socially Substance use: never Substance use type: does not use Lack of Transportation: No Lack of Food: Never True Current Housing: I Have Housing Concerned About Future Housing: No Difficulty Paying Gas/Electric Bills: No Difficulty Paying for Meds: No Currently Unemployed: No Education: Associate Degree Difficulty w/ Childcare or Family Care: No Living arrangements: with family Occupation/Education: occupation Gender identity (if verbalized by the patient): Female Sexual Orientation (if Verbalized by the Patient): Straight or Heterosexual Spiritual care concerns: No Agree to blood products: Yes Meds Home Medications and Allergies Home Medications Medication Instructions Recorded Confirmed Type cholecalciferol (vitamin D3) 50 50 mcg PO DAILY 07/06/22 08/08/23 History mcg (2,000 unit) capsule albuterol sulfate 90 mcg/actuation 2 puff inhalation QID PRN 01/26/23 08/08/23 Rx aerosol inhaler shortness of breath or wheezing #6.7 grams inhalational spacing device #1 ea 01/26/23 08/08/23 Rx (Aerochamber MV spacer) acyclovir 5 % topical cream 1 applic topical ONCE #30 grams 03/19/23 08/08/23 Rx omeprazole 20 mg capsule,delayed 20 mg PO DAILY #60 caps 06/18/23 08/08/23 Rx release estradiol 0.0375 mg/24 hr 1 patch transdermal 2XW 07/24/23 08/08/23 History semiweekly transdermal patch multivit with minerals-iron 18 1 tablet PO DAILY 07/24/23 08/08/23 History mg-folic ac 400 mcg-vit K 25 mcg tablet (Adults Multivitamin) progesterone micronized 100 mg 100 mg PO QAM 07/24/23 08/08/23 History capsule sumatriptan succinate 50 mg tablet See Rx Instructions PO .COMPLEX 07/24/23 08/08/23 History (Imitrex) PRN Migraine Headache testosterone 0.125 mg IM WEEKLY 07/24/23 08/08/23 History valacyclovir 1 gram tablet See Rx Instructions .Route 07/24/23 08/08/23 History .COMPLEX PRN Outbreak vitamin B complex (B 1 tablet PO RODRIGO
[2023-08-08 07:05] VITALS: BP 123/79; PULSE 98; RESP 20; TEMP 36.3; O2SAT 99; BMI 37.8
[2023-08-08] MEDS: LACTATED RINGERS 1,000 ML 150 ML IV CONT (07:08)
--- NOTE | 2023-08-08 07:34 | WPDANESEPPF ---
Anes - Initial Pre Proc Eval Procedure: Operation Date: 08/08/23 08:00 Proposed Procedures p Esophagogastroduodenoscopy & Colonoscopy - Griffin Renner MD Date/Time: 08/08/23 07:34 Surgeon: Griffin Renner MD Pre Op Diagnosis: hx of colon polyps,Eructation Patient Data Age: 63 Gender: F Height: 1.52 m Weight: 87.8 kg Last Vital Signs Temp 97.4 F L 08/08/23 07:05 Pulse 98 08/08/23 07:05 Resp 20 08/08/23 07:05 BP 123/79 08/08/23 07:05 Pulse Ox 99 08/08/23 07:05 O2 Del Method Room Air 08/08/23 07:05 Allergies Allergy/AdvReac Type Severity Reaction Status Date / Time No Known Allergies Allergy Verified 08/08/23 07:03 Home Medications Medication Instructions Recorded Confirmed Type cholecalciferol (vitamin D3) 50 50 mcg PO DAILY 07/06/22 08/08/23 History mcg (2,000 unit) capsule albuterol sulfate 90 mcg/actuation 2 puff inhalation QID PRN 01/26/23 08/08/23 Rx aerosol inhaler shortness of breath or wheezing #6.7 grams inhalational spacing device #1 ea 01/26/23 08/08/23 Rx (Aerochamber MV spacer) acyclovir 5 % topical cream 1 applic topical ONCE #30 grams 03/19/23 08/08/23 Rx omeprazole 20 mg capsule,delayed 20 mg PO DAILY #60 caps 06/18/23 08/08/23 Rx release estradiol 0.0375 mg/24 hr 1 patch transdermal 2XW 07/24/23 08/08/23 History semiweekly transdermal patch multivit with minerals-iron 18 1 tablet PO DAILY 07/24/23 08/08/23 History mg-folic ac 400 mcg-vit K 25 mcg tablet (Adults Multivitamin) progesterone micronized 100 mg 100 mg PO QAM 07/24/23 08/08/23 History capsule sumatriptan succinate 50 mg tablet See Rx Instructions PO .COMPLEX 07/24/23 08/08/23 History (Imitrex) PRN Migraine Headache testosterone 0.125 mg IM WEEKLY 07/24/23 08/08/23 History valacyclovir 1 gram tablet See Rx Instructions .Route 07/24/23 08/08/23 History .COMPLEX PRN Outbreak vitamin B complex (B 1 tablet PO DAILY 07/24/23 08/08/23 History Complex-Vitamin B12 tablet) levothyroxine 75 mcg tablet See Rx Instructions .Route 08/03/23 08/08/23 Rx .COMPLEX #90 tabs Patient hx anesthesia problems: none Family hx anesthesia problems: none Results Review: All pre-operative results and documents have been reviewed as part of the pre-operative evaluation. [facility] Past Medical History Medical History History of diabetes mellitus History of hypothyroidism Surgical History Surgical History S/P section 1986, 1987 Family History Family History Mother Family history of osteoporosis Family history of Alzheimer's disease Family history of dementia, Onset Age: 80 Father Hypertension Family history of elevated blood lipids Family history of cardiovascular disease Family history of renal failure Family history of kidney disease, Onset Age: 75 Sibling Family history of cardiovascular disease Social History Social History Smoking status: Never smoker Alcohol intake: current Alcohol use details: socially Substance use: never Substance use type: does not use Lack of Transportation: No Lack of Food: Never True Current Housing: I Have Housing Concerned About Future Housing: No Difficulty Paying Gas/Electric Bills: No Difficulty Paying for Meds: No Currently Unemployed: No Education: Associate Degree Difficulty w/ Childcare or Family Care: No Living arrangements: with family Occupation/Education: occupation Gender identity (if verbalized by the patient): Female Sexual Orientation (if Verbalized by the Patient): Straight or Heterosexual Spiritual care concerns: No Agree to blood products: Yes Anes - Eval Final PreProcedure Day of Procedure 08/08/23 07:34 Patient
[2023-08-08 08:17] VITALS: BP 102/72; PULSE 87; RESP 17; O2SAT 97
[2023-08-08 08:27] VITALS: BP 109/70; PULSE 83; RESP 18; O2SAT 99
[2023-08-08 08:37] VITALS: BP 130/75; PULSE 80; RESP 20; O2SAT 99
== END 2023-08-08 08:49 | disposition home or self-care (01) ==
PROVIDERS: PCP Family Medicine; Visit Provider Internal Medicine Gastroenterology
PROC: 0DJ08ZZ Inspection of Upper Intestinal Tract, Via Natural or Artificial Opening Endoscopic (ICD-10-PCS; CPT 43235; principal; 2023-08-08 08:00)
DX: Z12.11 Encounter for screening for malignant neoplasm of colon (principal); K62.1 Rectal polyp; K64.8 Other hemorrhoids; K21.9 Gastro-esophageal reflux disease without esophagitis; E11.9 Type 2 diabetes mellitus without complications; E03.9 Hypothyroidism, unspecified; Z79.51 Long term (current) use of inhaled steroids; Z79.890 Hormone replacement therapy; E66.9 Obesity, unspecified; Z68.37 Body mass index [BMI] 37.0-37.9, adult
CPT/HCPCS: 45380; 43239; 87081; 88305; J2704; J7120

== ENCOUNTER 2023-11-18 09:25 | Emergency (ER) | payer OTHER, SELFPAY ==
[2023-11-18 09:42] VITALS: BP 125/87; PULSE 110; RESP 16; TEMP 37.9; O2SAT 100
[2023-11-18 09:46] VITALS: BP 125/87; PULSE 110; RESP 16; TEMP 37.9; O2SAT 100
--- NOTE | 2023-11-18 09:49 | ED.EXTPRO ---
HPI - Extremity Problem General Chief complaint: Extremity Problem,Nontraumatic Stated complaint: Swollen Foot Time Seen by Provider: 11/18/23 09:49 Source: patient Mode of arrival: ambulatory Limitations: no limitations History of Present Illness HPI Narrative: 63-year-old female presents with complaint of pain and swelling to left great toe for 6 days. Patient reports pain and swelling getting progressively worse. Noticed redness yesterday. When she woke up today had streak of redness up into left foot. Fever for 2 days. Patient states that she started with a toe pain while in [place]. States that beach was rocking and unsure if she stepped on something. All systems reviewed and negative except as noted above. Related Data Home Medications Medication Instructions Recorded Confirmed cholecalciferol (vitamin D3) 50 50 mcg PO DAILY 07/06/22 11/18/23 mcg (2,000 unit) capsule multivit with minerals-iron 18 1 tablet PO DAILY 07/24/23 11/18/23 mg-folic ac 400 mcg-vit K 25 mcg tablet (Adults Multivitamin) vitamin B complex (B 1 tablet PO DAILY 07/24/23 11/18/23 Complex-Vitamin B12 tablet) Allergies Allergy/AdvReac Type Severity Reaction Status Date / Time No Known Allergies Allergy Verified 11/18/23 09:43 Review of Systems Review of Systems: CONSTITUTIONAL: Denies fever, chills, or sweats. EYES: Denies visual changes, redness, or discharge. ENT: Denies rhinorrhea, congestion, sore throat, or otalgia. CARDIOVASCULAR: Denies chest pain, palpitations, or edema. RESPIRATORY: Denies cough or dyspnea. GASTROINTESTINAL: Denies abdominal pain, nausea, vomiting, or diarrhea. GENITOURINARY: Denies dysuria or hematuria. SKIN: Denies rash or itching. MUSCULOSKELETAL: Denies back pain, joint pain, or myalgia. Reports pain, swelling, redness to left great toe. NEUROLOGIC: Denies headache, numbness, or weakness. PSYCHIATRIC: Denies anxiety or depression. All other systems reviewed are negative, except as documented in HPI. [facility] Past Medical History Medical History History of diabetes mellitus History of hypothyroidism Surgical History Surgical History S/P section 1986, 1987 Family History Family History Mother Family history of osteoporosis Family history of Alzheimer's disease Family history of dementia, Onset Age: 80 Father Hypertension Family history of elevated blood lipids Family history of cardiovascular disease Family history of renal failure Family history of kidney disease, Onset Age: 75 Sibling Family history of cardiovascular disease Social History Social History Smoking status: Never smoker Alcohol intake: current Alcohol use details: socially Substance use: never Substance use type: does not use Lack of Transportation: No Lack of Food: Never True Current Housing: I Have Housing Concerned About Future Housing: No Difficulty Paying Gas/Electric Bills: No Difficulty Paying for Meds: No Currently Unemployed: No Education: Associate Degree Difficulty w/ Childcare or Family Care: No Living arrangements: with family Occupation/Education: occupation Gender identity (if verbalized by the patient): Female Sexual Orientation (if Verbalized by the Patient): Straight or Heterosexual Spiritual care concerns: No Agree to blood products: Yes Comments At time of signature, agree with nursing past medical, surgical, social and family history. There is no relevant family history pertinent to the presenting complaint. Exam Narrative: GENERAL: This is a well-nourished, well-developed patient, in no apparent distress. HEAD: normocephalic, atraumatic. EYES: PERRL. Sclera clear/white. Vision is grossly intact
== END 2023-11-18 10:08 | disposition home or self-care (01) ==
PROVIDERS: Emergency Provider Nurse Practitioner Family; PCP Family Medicine
DX: L03.032 Cellulitis of left toe (principal); L84 Corns and callosities; S91.332A Puncture wound without foreign body, left foot, initial encounter; L08.9 Local infection of the skin and subcutaneous tissue, unspecified; X58.XXXA Exposure to other specified factors, initial encounter; E11.9 Type 2 diabetes mellitus without complications; E03.9 Hypothyroidism, unspecified
CPT/HCPCS: 11420; 99213; G0463

== ENCOUNTER 2023-12-17 08:36 | Outpatient (CLI) | payer OTHER, SELFPAY ==
--- NOTE | 2023-12-17 08:45 | EST_ITS ---
Patient Info Name: Moira Cuevas Age: 63 years : 1960 Gender: Female Ht: 60 in Wt: 180 lbs BSA: 1.90 m2 HR: 73 bpm BP: 102 / 59 mmHg Heart Rhythm: Sinus Rhythm Exam Date: 12/17/2023 9:00 AM Exam Location: Echo Lab Patient Status: Outpatient Admit Date: 12/17/2023 Staff Ordering Physician: Moira Tapia Attending Provider: Moira Tapia Exercise Technologist: Margoth Stuart CT Exercise Physician: Sawyer Nair DO Exam Type: CA stress test treadmill Study Info Indications R06.02 - Shortness of breath A treadmill exercise stress test was performed. Summary 1. 1. Negative Chris exercise stress test for ischemic ST changes by ECG criteria. 2. 2. Good functional capacity, achieving 7 METs of workload. 3. 3. Appropriate HR response to exercise. 4. 4. Appropriate HR recovery at 1 minute post exercise. 5. 5. No imaging with stress testing. 6. 6. Patient informed of the above results. Protocol: Chris Stress ECG Details Stage: REST Duration (min): 1 min : 12 sec Speed (mph): 0.0 Grade (%): 0 HR (bpm): 76 SBP (mmHg): 102 DBP (mmHg): 59 METS: --- Stage: REST Duration (min): 3 min : 46 sec Speed (mph): 0.0 Grade (%): 0 HR (bpm): 75 SBP (mmHg): 102 DBP (mmHg): 59 METS: --- Stage: REST Duration (min): 4 min : 8 sec Speed (mph): 0.0 Grade (%): 0 HR (bpm): 79 SBP (mmHg): 102 DBP (mmHg): 59 METS: --- Stage: REST Duration (min): 5 min : 12 sec Speed (mph): 0.0 Grade (%): 0 HR (bpm): 80 SBP (mmHg): 102 DBP (mmHg): 59 METS: --- Stage: STAGE 1 Duration (min): 1 min : 0 sec Speed (mph): 1.7 Grade (%): 10 HR (bpm): 107 SBP (mmHg): 102 DBP (mmHg): 59 METS: --- Stage: STAGE 1 Duration (min): 2 min : 0 sec Speed (mph): 1.7 Grade (%): 10 HR (bpm): 113 SBP (mmHg): 102 DBP (mmHg): 59 METS: --- Stage: STAGE 1 Duration (min): 3 min : 0 sec Speed (mph): 1.7 Grade (%): 10 HR (bpm): 114 SBP (mmHg): 145 DBP (mmHg): 53 METS: --- Stage: STAGE 2 Duration (min): 1 min : 0 sec Speed (mph): 2.5 Grade (%): 12 HR (bpm): 129 SBP (mmHg): 145 DBP (mmHg): 53 METS: --- Stage: STAGE 2 Duration (min): 2 min : 0 sec Speed (mph): 2.5 Grade (%): 12 HR (bpm): 143 SBP (mmHg): 136 DBP (mmHg): 58 METS: --- Stage: STAGE 2 Duration (min): 3 min : 0 sec Speed (mph): 2.5 Grade (%): 12 HR (bpm): 147 SBP (mmHg): 136 DBP (mmHg): 58 METS: --- Stage: RECOVERY Duration (min): 0 min : 59 sec Speed (mph): 0.0 Grade (%): 0 HR (bpm): 117 SBP (mmHg): 145 DBP (mmHg): 62 METS: --- Stage: RECOVERY Duration (min): 1 min : 53 sec Speed (mph): 0.0 Grade (%): 0 HR (bpm): 98 SBP (mmHg): 145 DBP (mmHg): 62 METS: --- Rest HR: 80 bpm Peak HR: 148 bpm Rest Sys BP: 102 mmHg Peak Sys BP: 145 mmHg Max Pred HR: 156 bpm % Max Pred HR: 95 % Target HR: 133 bpm Max RPP: 21,460 bpm*mmH
== END 2023-12-17 08:37 | disposition home or self-care (01) ==
PROVIDERS: PCP Family Medicine; Visit Provider Nurse Practitioner
DX: R06.02 Shortness of breath (principal)
CPT/HCPCS: 93017

== ENCOUNTER 2024-04-16 06:40 | Outpatient (CLI) | payer OTHER, SELFPAY ==
--- NOTE | ~2024-04-16 | CT_ITS ---
EXAMINATION: CTA brain carotid DATE: 04/16/2024 07:18 INDICATION: Syncope and collapse. TECHNIQUE: Computed tomographic angiography (CTA) of the head was performed without and with 100 mL O mnipaque-350 intravenous contrast. CTA of the neck was performed with intravenous contrast. Automated exposure control and iterative reconstruction technique were employed. The dose-length product was 1 589.29 mGy-cm. Maximum intensity projection and volume rendered 3D-reconstructions were created by juan carlos caceres technologist on a separate workstation. COMPARISON: None. FINDINGS: HEAD CTA: There is no intracranial hemorrhage, acute infarction, or abnormal intracranial mass lesion . The ventricles are normal in size. The orbits are normal. There is mild mucosal thickening in left maxillary sinus. The mastoid air cells are normal. The vertebral arteries are codominant. There is no significant stenosis of basilar artery or the posterior cerebral arteries. The posterior communicati ng arteries are normal. There is no significant stenosis of intracranial internal carotid arteries or anterior or middle cerebral arteries. Anterior communicating artery is normal. There is no aneurysm. NECK CTA: There are no pathologically enlarged lymph nodes. There is no significant stenosis of the v ertebral arteries. There is mild plaque in the proximal internal carotid arteries. There is 0% stenos is of the proximal right internal carotid artery relative to normal distal artery lumen diameter (SURJIT CET criteria). There is 0% stenosis of the proximal left internal carotid artery relative to normal d istal artery lumen diameter. There is severe cervical spondylosis. IMPRESSION: 1. Normal brain. No aneurysm or significant arterial stenosis. 2. 0% stenosis of the proximal internal carotid arteries relative to normal distal artery lumen diame ters (NASCET criteria). Reviewed, dictated and finalized at location A. IMPRESSION: 1. Normal brain. No aneurysm or significant arterial stenosis. 2. 0% stenosis of the proximal internal carotid arteries relative to normal dis josue artery lumen diameters (NASCET criteria).
[2024-04-16 07:06] LABS: Estimated Glomerular Filt Rate 50
== END 2024-04-16 06:41 | disposition home or self-care (01) ==
PROVIDERS: PCP Family Medicine; Visit Provider Nurse Practitioner
DX: R55 Syncope and collapse (principal)
CPT/HCPCS: 70496; 70498; Q9967

== ENCOUNTER 2024-06-22 10:38 | Emergency (ER) | payer OTHER, SELFPAY ==
--- NOTE | ~2024-06-22 | XR_ITS ---
Clinical Indication: 02/02/2023 PA and lateral views of the chest: Comparison: Cough Findings: The lungs are clear, without evidence of focal consolidation or pleural effusion. Cardiome diastinal silhouette is within normal limits. Bones and soft tissues are unremarkable. Impression: Normal chest. Reviewed, dictated and finalized at location . Impression: Normal chest.
[2024-06-22 10:50] VITALS: BP 134/82; PULSE 78; RESP 16; TEMP 36.6; O2SAT 99
--- NOTE | 2024-06-22 11:10 | ED.URI ---
HPI - URI/Sore Throat General Chief Complaint: Upper Respiratory Infection Stated Complaint: Cough and Exposure to Pneumonia Time Seen by Provider: 06/22/24 11:10 Source: patient, RN notes reviewed and old records reviewed Mode of arrival: ambulatory Limitations: no limitations History of Present Illness HPI Narrative: 64-year-old female presents to the [facility] with complaints of a cough. Patient reports that she has a close exposure to pneumonia and strep. Denies any sore throat. Took 1 dose of testing cough syrup this morning. No other treatment prior to arrival Related Data Home Medications Medication Instructions Recorded Confirmed cholecalciferol (vitamin D3) 50 50 mcg PO DAILY 07/06/22 06/22/24 mcg (2,000 unit) capsule multivit with minerals-iron 18 1 tablet PO DAILY 07/24/23 06/22/24 mg-folic ac 400 mcg-vit K 25 mcg tablet (Adults Multivitamin) vitamin B complex (B 1 tablet PO DAILY 07/24/23 06/22/24 Complex-Vitamin B12 tablet) fluvoxamine 100 mg tablet 100 mg PO BID 04/10/24 06/22/24 Allergies Allergy/AdvReac Type Severity Reaction Status Date / Time No Known Allergies Allergy Verified 06/22/24 10:50 Review of Systems Review of Systems: All systems reviewed & are unremarkable except as noted in HPI and below Constitutional: Constitutional: Reports no additional constitutional complaints ENT: Reports system reviewed and no additional complaints, except as documented Cardiovascular: Cardiovascular: Reports no additional cardiovascular complaints, Denies chest pain and Denies dyspnea Respiratory: Respiratory: Reports as per HPI, Denies chest congestion, Reports cough and Denies dyspnea Gastrointestinal: Gastrointestinal: Reports no additional gastrointestinal complaints, Denies abdominal pain, Denies nausea and Denies vomiting Musculoskeletal: Musculoskeletal: Reports no additional musculoskeletal complaints Integumentary/Breasts: Skin/Breast: Reports system reviewed and no additional complaints, except as docu PMFSH Past Medical History Medical History History of diabetes mellitus History of hypothyroidism Surgical History Surgical History S/P section 1986, 1987 Family History Family History Mother Family history of osteoporosis Family history of Alzheimer's disease Family history of dementia, Onset Age: 80 Father Hypertension Family history of elevated blood lipids Family history of cardiovascular disease Family history of renal failure Family history of kidney disease, Onset Age: 75 Sibling Family history of cardiovascular disease Social History Social History Smoking status: Never smoker Alcohol intake: current Alcohol use details: socially Substance use: never Substance use type: does not use Lack of Transportation: No Lack of Food: Never True Current Housing: I Have Housing Concerned About Future Housing: No Difficulty Paying Gas/Electric Bills: No Difficulty Paying for Meds: No Currently Unemployed: No Education: Associate Degree Difficulty w/ Childcare or Family Care: No Living arrangements: with family Occupation/Education: occupation Gender identity (if verbalized by the patient): Female Sexual Orientation (if Verbalized by the Patient): Straight or Heterosexual Spiritual care concerns: No Agree to blood products: Yes Comments At the time of my signature, I reviewed and agree with the nursing past medical, surgical, social, and family history. There is no relevant family history pertinent to the patient complaint. Exam Const: General: cooperative, healthy appearing, comfortable, no acute distress, well developed, alert and well nourished Nutritional Appearance
== END 2024-06-22 11:44 | disposition home or self-care (01) ==
PROVIDERS: Emergency Provider Nurse Practitioner; PCP Family Medicine
DX: J06.9 Acute upper respiratory infection, unspecified (principal); R09.82 Postnasal drip; E11.9 Type 2 diabetes mellitus without complications; E03.9 Hypothyroidism, unspecified
CPT/HCPCS: 71046; 99213; G0463

== ENCOUNTER 2024-07-07 16:22 | Outpatient (CLI) | payer OTHER, SELFPAY ==
--- NOTE | ~2024-07-07 | XR_ITS ---
CHEST RADIOGRAPH, PA AND LATERAL CLINICAL HISTORY: cough sob for 2 weeks . COMPARISON: 06/22/2024 TECHNIQUE: PA and lateral views of the chest. FINDINGS The cardiomediastinal silhouette is unremarkable. The lungs are clear. Visualized osseous structures and soft tissues are unremarkable. IMPRESSION: No focal infiltrate or effusion. If clinical suspicion persists, cross-sectional imaging (noncontrast enhanced CT examination of the c hest) is suggested for further evaluation. Reviewed, dictated and finalized at location A. PRESIDENT IMPRESSION: No focal infiltrate or effusion. If clinical suspicion persists, cross-sectional imaging (noncontrast enhanced C T examination of the chest) is suggested for further evaluation.
== END 2024-07-07 16:23 | disposition home or self-care (01) ==
LOC: GOSHIMG 16:22
PROVIDERS: PCP Family Medicine; Visit Provider Nurse Practitioner
DX: R05.9 Cough, unspecified (principal); R06.02 Shortness of breath
CPT/HCPCS: 71046

== ENCOUNTER 2024-10-08 07:47 | Outpatient (CLI) | payer MEDICARE, SELFPAY ==
--- NOTE | 2024-10-08 07:56 | ECHO_ITS ---
Patient Info Name: Moira Cuevas Age: 64 years : 1960 Gender: Female Ht: 60 in Wt: 185 lbs BSA: 1.93 m2 HR: 60 bpm BP: 145 / 90 mmHg Heart Rhythm: Sinus Rhythm Technical Quality: Good Exam Date: 10/08/2024 8:01 AM Exam Location: Echo Lab Patient Status: Outpatient Admit Date: 10/08/2024 Staff Ordering Physician: Berlin Fagan MD [place] Feather Trimmer: Galina Rodriguez RDCS Attending Provider: Berlin Fagan MD Referring Physician: Gracia LIN; Exam Type: CA echo doppler w bubble study Study Info Indications I35.0 - Nonrheumatic aortic (valve) stenosis R55 - Syncope and collapse Complete two-dimensional, color flow and Doppler transthoracic echocardiogram is performed with agitated saline. Contrast/Agitated Saline Contrast/Ag. Saline: Agitated Saline Amount: 14.00 ml Existing IV Access: No New IV Access: Left Site Condition: IV removed Summary 1. Left ventricular chamber dimension is normal. 2. Left ventricular systolic function is normal, estimated at 55-60%. 3. The left ventricular diastolic function is normal. 4. E/e' 8 is minimally elevated. 5. There is trace aortic valve regurgitation. 6. There is trace mitral valve regurgitation. 7. No pulmonary hypertension, estimated pulmonary arterial systolic pressure is 26 mmHg. 8. There is trace pulmonic regurgitation. Left Ventricle E/e' 8 is minimally elevated. Left ventricular chamber dimension is normal. Left ventricular systolic function is normal, estimated at 55-60%. The left ventricular diastolic function is normal. Right Ventricle Right ventricular systolic function is normal and with normal TAPSE 1.8 cm. Right ventricular chamber dimension is normal. Left Atria Left atrial chamber dimension is normal. Right Atria Right atrial chamber dimension is normal. Atrial Septum Agitated saline injection with and without valsalva maneuver opacified right side cardiac chambers without shunt to left side cardiac chambers. Intact interatrial septum visualized by 2D and agitated saline imaging. Aortic Valve The aortic valve is trileaflet. There is no aortic valve stenosis. There is trace aortic valve regurgitation. Pulmonic Valve There is trace pulmonic regurgitation. Mitral Valve There is no mitral valve stenosis. There is trace mitral valve regurgitation. Tricuspid Valve There is no tricuspid valve regurgitation. No pulmonary hypertension, estimated pulmonary arterial systolic pressure is 26 mmHg. Pericardium/Pleural There is no pericardial effusion. Inferior Vena Cava Normal inferior vena cava with >50% collapse upon inspiration consistent with normal right atrial pressure, 5 mmHg. Aorta The aortic root size at the sinus of Valsalva is normal. Left Ventricular Outflow Tract Name Value Normal LVOT 2D LVOT Diameter 2.0 cm LVOT Doppler LVOT Peak Gradient 2 mmHg LVOT Mean Gradient 1 mmHg LVOT VTI 13 cm LVOT VTI/AV VTI Ratio 0.7 LVOT Stroke Volume 40 ml LVOT CO 3.0 l/min LVOT CI 1.5 l/min/m2 Pulmonic Valve Name Value Normal RVOT Doppler RVOT Peak Gradient 2 mmHg PV Doppler PV Peak Gradient 2 mmHg Mitral Valve Name Value Normal MV Doppler MV Decel [place] 248 cm/s2 MV PHT 73 ms MV Area (PHT) 3.0 cm2 4.0-5.0 MV Diastolic Function MV E Peak Velocity 62 cm/s MV A Peak Velocity 83 cm/s MV E/A 0.8 MV Decel Time 251 ms MV Annular TDI MV E/e' (Septal) 10.2 <=8.0 MV E/e' (Lateral) 7.9 <=8.0 MV E/e' (Average) 9.0 Tricuspid Valve Name Value Normal TV Regurgitation Doppler TR Peak Velocity 230 cm/s TR Peak Gradient 21 mmHg Estimated PAP/RSVP RA Pressure 5 mmHg <=5 PA Systolic Pressure 26 mmHg <36 RV Systolic Pressure 26 mmHg <36 Aorta Name Value Normal Ascending Aorta Ao Root Diameter (MM) 3.4 cm Ao Root Diam Index (MM) 1.8 cm/m2 Aortic Valve Name Value Normal AV Doppler AV Peak Velocity 100 cm/s AV Peak Gradient 4 mmHg AV Mean Gradient 2 mmHg AV VTI 19 cm AV Area (Cont Eq VTI) 2.1 cm2 >=3.0 AV Area (Cont Eq Roger) 2.2 cm2 AV Regurgitation 2D LVOT Area 3.1 cm2 Ventricles Name Value Normal LV Dimensions 2D/MM IVS Diastolic Thickness (2D) 1.2 cm 0.6-1.0 LVID Diastole (2D) 4.7 cm 3.8-5.2 LVIW Diastolic Thickness (2D) 0.9 cm 0.6-0.9 LVID Systole (2D) 3.3 cm 2.2-3.5 LVOT Diameter 2.0 cm LV Mass (2D Cubed) 179.93 g 67.00-162.00 LV Mass Index (2D Cubed) 93 g/m2 43-95 Relative Wall Thickness (2D) 0.39 LV Fractional Shortening/Ejection Fraction 2D/MM LV Fractional Shortening (2D) 29 % 27-45 LV EF (2D Teicholz) 56 % 54-74 LV Diastolic Volume (4C MOD) 72 ml LV EF (4C MOD) 59 % LV Diastolic Volume (2C MOD) 54 ml LV EF (2C MOD) 63 % LV Diastolic Volume (BP MOD) 64 ml 46-106 LV Diastolic Volume Index (BP MOD) 33 ml/m2 29-61 LV Systolic Volume (BP MOD) 25 ml 14-42 LV Systolic Volume Index (BP MOD) 13 ml/m2 8-24 LV EF (BP MOD) 61 % 54-74 LV Diastolic Length (4C) 7.1 cm LV Systolic Length (4C) 6.1 cm LV Stroke Volume (4C MOD) 42 ml Atria Name Value Normal LA Dimensions LA Dimension (MM) 3.5 cm 2.7-3.8 LA Volume (4C A-L) 27 ml LA Volume (BP A-L) 32 ml RA Dimensions RA Area (4C) 12.0 cm2 <=18.0 Report Signatures
== END 2024-10-08 07:48 | disposition home or self-care (01) ==
LOC: ANHCARD 07:48
PROVIDERS: PCP Family Medicine; Visit Provider Psychiatry & Neurology Neurology
DX: R55 Syncope and collapse (principal); G43.909 Migraine, unspecified, not intractable, without status migrainosus; I35.0 Nonrheumatic aortic (valve) stenosis
CPT/HCPCS: 93242; 93306; 96375

== ENCOUNTER 2024-10-20 11:38 | Outpatient (CLI) | payer MEDICARE, SELFPAY ==
--- NOTE | ~2024-10-20 | XR_ITS ---
EXAMINATION: XR humerus LT, XR forearm LT 2V, XR shoulder LT min 2V DATE: 10/20/2024 12:04 INDICATION: Left arm pain 2 weeks post fall TECHNIQUE: 1. AP internally and externally rotated, AP oblique externally rotated and transscapular Y views of t he left shoulder were obtained. 2. Internal and axillary rotated views of the left humerus were obtained. 3. AP and lateral views of the left forearm were obtained. COMPARISON: None FINDINGS: Left shoulder: Normal alignment. Subtle linear lucency extending across the 2:00 position of the anterosuperior rim of the glenoid cervical AP projection of the shoulder and on the x-ray rotated view of the left humer us but without evident correlate on the Grashey projection, nonetheless suspicious for nondisplaced f racture. No other lesions suspicious for fracture identified. Glenohumeral joint is normal. Mild acro mioclavicular osteoarthritis. Soft tissues are unremarkable. Visualized portion of the left lung are clear. Left humerus and forearm: Normal alignment and joint spaces at the left elbow, wrist and visualized hand. Soft tissues are unre markable. No fracture. No elbow joint effusion. IMPRESSION: Possible minimally displaced fracture along the anterosuperior rim of the glenoid. Consider CT for fu rther evaluation. Reviewed, dictated and finalized at location A. EL MAKER IMPRESSION: Possible minimally displaced fracture along the anterosuperior rim of the gleno id. Consider CT for further evaluation. IMPRESSION: Possible minimally displaced fracture along the anterosuperior rim of the gleno id. Consider CT for further evaluation.
== END 2024-10-20 11:39 | disposition home or self-care (01) ==
LOC: GOSHIMG 11:40
PROVIDERS: PCP Nurse Practitioner; Visit Provider Nurse Practitioner
DX: M25.512 Pain in left shoulder (principal); M79.602 Pain in left arm
CPT/HCPCS: 73030; 73060; 73090

== ENCOUNTER 2024-10-23 08:36 | Outpatient (CLI) | payer MEDICARE, SELFPAY ==
--- NOTE | ~2024-10-23 | CT_ITS ---
EXAMINATION: CT shoulder LT wo con DATE: 10/23/2024 08:56 INDICATION: Displaced fracture of the glenoid of the left scapula. TECHNIQUE: High resolution computed tomography (CT) of the left shoulder was performed without intrav enous contrast. Additional sagittal and coronal reconstructions were performed. Automated exposure co ntrol and iterative reconstruction technique were employed. The dose-length product was 506.55 mGy-cm . COMPARISON: Radiographs dated 10/20/2024 FINDINGS: There is a subtle nondisplaced Bankart type fracture involving the anteroinferior rim of the glenoid. The fracture lines cross the rim of the glenoid at the 3:00 and 6:00 position with the nondisplaced fragment measuring 2.3 x 1.0 cm. The fracture is best appreciated on sagittal series 602, image 51. A lignment remains anatomic. No other fractures identified. Specifically no corresponding Hill-Sachs fr acture identified at the humeral head. Mild glenohumeral and mild to moderate acromioclavicular osteo arthritis. No joint effusion. Soft tissues are unremarkable. Visualized portions of the left lung are clear. IMPRESSION: 1. Nondisplaced intra-articular fracture at the anteroinferior glenoid. Reviewed, dictated and finalized at location A. BRAZIER
== END 2024-10-23 08:37 | disposition home or self-care (01) ==
LOC: MICIMG 08:37
PROVIDERS: PCP Nurse Practitioner; Visit Provider Orthopaedic Surgery
DX: S42.145A Nondisplaced fracture of glenoid cavity of scapula, left shoulder, initial encounter for closed fracture (principal); X58.XXXA Exposure to other specified factors, initial encounter
CPT/HCPCS: 73200

== ENCOUNTER 2024-12-26 14:30 | Outpatient (RCR) | payer MEDICARE, SELFPAY ==
--- NOTE | 2024-11-25 09:21 | OPREHPOC ---
Outpatient Therapy Plan of Care This is a Multidisciplinary Plan of Care that may contain components documented by all disciplines (PT, OT, and ST.) PT Problem 1 PT Problem #1 Knowledge Deficit PT Goal 1 Goal / Goal Update [place] with HEP Target Visit 4 PT Goal 2 Goal / Goal Update Report no pain greater than 2/10 for 2 consecutive weeks Target Visit 4 PT Problem 2 PT Problem #2 Impaired Strength PT Goal 1 Goal / Goal Update Improve gross left capsular strength top 5/5 to improve shoulder stability with ADLs Target Visit 4 PT Goal 2 Goal / Goal Update Demonstrate 5# lit overhead x 5 with no increased shoulder pain Target Visit 4
--- NOTE | 2024-11-25 09:21 | PTOPEVAL1 ---
Assessment and note entered by Ankur Degroot, PT Evaluation Information Assessment Status Evaluation Diagnosis S42.142A ICD-10 Condition Codes (PT) Pain in left shoulder M25.512 Onset 10/14/24 Subjective Information Reports that she had a fall from a step stool. She has been working out with a development trainer to get in better shape, but had a miss step and fell on her ceramic floor. She waited it out for a while but the pain never went away. Decided to follow up and found out she had a scapular fracture. She has been diagnosed with osteoporosis. Reports no pain at rest but she has pain during arm use and sleeping. Cannot put pressure on shoulder. Her initial symptoms were numbness and tingling in her hands with trouble gripping. She is currently taking Tylenol for pain and having a lot of trouble using the arm. Reported Pain Level Pain Score 1: Self Report Assessment PT Clinical Summary Patient presents with capsular weakness and posterior capsule tightness at this time secondary to fracture and brief period of immobilization. Patient will benefit from skilled therapy to address these shoulder limitations and improve functional use. Special attention will be paid to dislocation risk and history of osteoporosis. Plan of Care Interventions Electrical Stimulation,Manual Therapy,Neuro Re- education,Therapeutic Activities,Therapeutic Exercise PT Services Indicated Yes Treatment Frequency and 1x/week for 4 visits Duration These treatments will address the objective and functional deficits as defined above. The patient will be advanced safely and appropriately in order for the patient to progress towards his/her prior level of function. Additional exercises will be introduced and as well as a comprehensive home exercise program upon discharge, if needed, ?to ensure carryover of functional gains achieved in the clinic. This treatment plan has been reviewed and agreement upon by the patient.
--- NOTE | 2024-12-15 15:48 | PCPTNOTE ---
Patient called & cancelled scheduled appointment this date due to having a headache. She has been rescheduled.
--- NOTE | 2024-12-26 15:27 | OPREHPOC ---
Outpatient Therapy Plan of Care This is a Multidisciplinary Plan of Care that may contain components documented by all disciplines (PT, OT, and ST.) PT Problem 1 PT Problem #1 Knowledge Deficit PT Goal 1 Goal / Goal Update Mower with HEP Target Visit 4 Progress Met PT Goal 2 Goal / Goal Update Report no pain greater than 2/10 for 2 consecutive weeks Target Visit 4 Progress Met PT Problem 2 PT Problem #2 Impaired Strength PT Goal 1 Goal / Goal Update Improve gross left capsular strength top 5/5 to improve shoulder stability with ADLs Target Visit 4 Progress Met PT Goal 2 Goal / Goal Update Demonstrate 5# lit overhead x 5 with no increased shoulder pain Target Visit 4 Progress Met
--- NOTE | 2024-12-26 15:27 | PTOPDC ---
Assessment and note entered by Ankur Degroot, PT Evaluation Information Assessment Status Discharge Diagnosis S42.142A ICD-10 Condition Codes (PT) Pain in left shoulder M25.512 Onset 10/14/24 Subjective Information Reports that overall she feels she is doing much better. She has not concerns with her motion but has caught herself avoiding use of the shoulder. Plans to improve that through functional exercise. Denies any pain. Patient requests discharge at this time. Reported Pain Level Pain Score 0: Self Report Assessment PT Clinical Summary Patient has met all goals for therapy and is suitable for discharge to HEP at this time. Full ROM noted actively. 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 Plan of Care PT Services Indicated Yes
== END 2024-12-26 15:37 | disposition home or self-care (01) ==
LOC: ANHGOSHPT 14:30
PROVIDERS: PCP Nurse Practitioner; Visit Provider Orthopaedic Surgery
DX: S42.142D Displaced fracture of glenoid cavity of scapula, left shoulder, subsequent encounter for fracture with routine healing (principal)
CPT/HCPCS: 97110; 97161; 97530

== ENCOUNTER 2025-02-09 13:01 | Outpatient (CLI) | payer MEDICARE, SELFPAY ==
--- NOTE | ~2025-02-09 | MM_ITS ---
EXAMINATION: MM screening tapan BI w [facility] HISTORY: Screening TECHNIQUE: Craniocaudal and mediolateral oblique 3-D tomosynthesis images were obtained and synthetic 2-D images were generated. CAD analysis was submitted and interpreted. COMPARISON: Comparison to multiple prior studies sequentially, with oldest reviewed study dated 08/04. BREAST PARENCHYMAL COMPOSITION: Not dense: There are scattered areas of fibroglandular density. FINDINGS: There is no evidence of suspicious mass, calcification, or architectural distortion to sugg est malignancy in either breast. There has been no suspicious interval change. IMPRESSION: 1. No mammographic evidence of malignancy. 2. Recommend routine screening mammography in one year. BI-RADS Category 1: Negative Reviewed, dictated and finalized at location B.
--- NOTE | ~2025-02-09 | DEXA_ITS ---
Bone Density Report Name: MOIRA ADAMES Age: 64 Sex: Female Ethnicity: White Date of : 1960 Indication: postmenopausal; screening for osteoporosis; parental hip fracture; height loss; secondary osteoporosis; Referring Provider: Moira Tapia Study: Bone densitometry was performed. Exam Date: February 09, 2025 Accession number: [id number] Bone Density: Region BMD T-score Z-score Classification AP Spine(L1-L4) 0.919 -1.2 0.6 Osteopenia Femoral Neck (Left) 0.682 -1.5 0.0 Osteopenia Total Hip (Left) 0.906 -0.3 1.0 Normal Femoral Neck (Right) 0.626 -2.0 -0.5 Osteopenia Total Hip (Right) 0.935 -0.1 1.2 Normal Femoral Neck Mean 0.654 -1.8 -0.2 Osteopenia Total Hip Mean 0.920 -0.2 1.1 Normal World Health Organization criteria for BMD impression classify patients as: Normal (T-score at or above -1.0), Osteopenia (T-score between -1.0 and -2.5), or Osteoporosis (T-score at or below -2.5). 10-year Fracture Risk: FRAX not reported because: Treated for osteoporosis Clinical Information Provided by Patient: Parent has had a hip fracture Smokes Has secondary osteoporosis Is being treated for osteoporosis Has used the following medications: Vitamin D, Calcium Patient maximum height was 70 Menopause Age: 54 Drinks caffeinated beverages Onset of menses at age 12 Number of children 2 Impression: The patient has low bone mass, based on the Right Femoral Neck T-score. The patient has risk factors, including: parental hip fracture, smoking. Discussion: It is important to ask patients whether they are taking their medications and to encourage continued and appropriate compliance with their osteoporosis therapies to reduce fracture risk. It is also important to review their risk factors and encourage appropriate calcium and vitamin D intakes, exercise, fall prevention and other lifestyle measures. Follow-Up: Consider a repeat BMD and Vertebral Fracture Assessment (VFA) exam in 2 years or sooner if medically necessary, to reassess this patient's status. Reported by: SACHI on 02/09/2025 1:51:00 PM. Reviewed, dictated and finalized at location A.
== END 2025-02-09 13:02 | disposition home or self-care (01) ==
PROVIDERS: PCP Nurse Practitioner; Visit Provider Nurse Practitioner
DX: Z12.31 Encounter for screening mammogram for malignant neoplasm of breast (principal); M85.89 Other specified disorders of bone density and structure, multiple sites
CPT/HCPCS: 77063; 77067; 77080

== ENCOUNTER 2025-03-11 16:22 | Emergency (ER) | payer MEDICARE, SELFPAY ==
--- NOTE | 2025-03-11 16:29 | ED.SKABFB ---
HPI - Skin/Abscess/Foreign Bdy General Chief complaint: Skin/Abscess/Foreign Body Stated complaint: PAINFUL RASH Time Seen by Provider: 03/11/25 16:29 Source: patient Mode of arrival: ambulatory Limitations: no limitations History of Present Illness HPI narrative: 64 yo F reports irritation to R side upper arm, along ribs for 5 days. Wants checked for shingles. Does have some itching. Noticed spots today that her told her were skin tags. All systems reviewed and negative except as noted above. Related Data Home Medications ?Medication ?Instructions ?Recorded ?Confirmed ?Last Taken ?Type vitamin B complex (B 1 tablet PO DAILY 07/24/23 03/03/25 08/07/23 History Complex-Vitamin B12 tablet) Fish Oil PO 11/21/24 03/03/25 Unknown History calcium 315 mg (as 1 tablet PO BID 11/21/24 03/03/25 Unknown History citrate)-vitamin D3 6.25 mcg (250 unit) tablet (Citracal + Vitamin D Maximum) cholecalciferol (vitamin D3) 10 10 mcg PO DAILY 11/21/24 03/03/25 Unknown History mcg/drop (400 unit/drop) oral drops levothyroxine 50 mcg tablet 50 mcg PO DAILY 12/10/24 03/03/25 Unknown History Allergies Allergy/AdvReac Type Severity Reaction Status Date / Time No Known Allergies Allergy Verified 03/11/25 16:32 Review of Systems Review of Systems: CONSTITUTIONAL: Denies fever, chills, or sweats. EYES: Denies visual changes, redness, or discharge. ENT: Denies rhinorrhea, congestion, sore throat, or otalgia. CARDIOVASCULAR: Denies chest pain, palpitations, or edema. RESPIRATORY: Denies cough or dyspnea. GASTROINTESTINAL: Denies abdominal pain, nausea, vomiting, or diarrhea. GENITOURINARY: Denies dysuria or hematuria. SKIN: Reports bumps to skin with itching and irritation MUSCULOSKELETAL: Denies back pain, joint pain, or myalgia. NEUROLOGIC: Denies headache, numbness, or weakness. PSYCHIATRIC: Denies anxiety or depression. All other systems reviewed are negative, except as documented in HPI. PENDING SALE TO [facility] Past Medical History Medical History Syncope and collapse determined by examination Migraine syndrome History of diabetes mellitus History of hypothyroidism Surgical History Surgical History S/P section 1986, 1987 Family History Family History Mother Family history of osteoporosis Family history of Alzheimer's disease Family history of dementia, Onset Age: 80 Father Hypertension Family history of elevated blood lipids Family history of cardiovascular disease Family history of renal failure Family history of kidney disease, Onset Age: 75 Sibling Family history of cardiovascular disease Grandparent Cerebrovascular accident Social History Social History Smoking status: Never smoker Alcohol intake: current Alcohol use details: socially Substance use: never Substance use type: does not use Do You Feel Safe in your Home?: Yes Lack of Transportation: No Lack of Food: Never True Current Housing: I Have Housing Concerned About Future Housing: No Difficulty Paying Gas/Electric Bills: No Difficulty Paying for Meds: No Currently Unemployed: No Education: Associate Degree Difficulty w/ Childcare or Family Care: No Living arrangements: with family Occupation/Education: occupation Gender identity (if verbalized by the patient): Female Sexual Orientation (if Verbalized by the Patient): Straight or Heterosexual Spiritual care concerns: No Agree to blood products: Yes Comments At time of signature, agree with nursing past medical, surgical, social and family history. There is no relevant family history pertinent to the presenting complaint. Exam Narrative: GENERAL: This is a well-nourished, well-developed patient, in no apparent distress. HEAD: normocephalic, atraumatic. EYES: PERRL. Sclera clear/white. Vision is grossly intact. EARS: External ears normal NOSE: External nose normal NECK: Neck supple, non-tender without lymphadenopathy, masses or thyromegaly. CARDIOVASCULAR: Regular rate and rhythm without murmurs, gallops, or rubs. RESPIRATORY: Clear to auscultation. Breath sounds equal bilaterally. No wheezes, rales, or rhonchi. SKIN: warm, Dry, intact with no suspicious lesions or rash, good texture and turgor. hyperpigmented moles/skin tags to R upper arm with erythema, vesicles NEURO: awake, alert, and oriented to person, place and time. There were no obvious focal neurologic abnormalities. EXTREMITIES: No joint tenderness, effusion, or edema noted. Course Course Level of Care: Express Care Visit Vital Signs Vital signs: Vital Signs Temperature 36.6 C 03/11/25 16:32 Pulse Rate 85 03/11/25 16:32 Respiratory Rate 16 03/11/25 16:32 Blood Pressure 106/78 03/11/25 16:32 Pulse Oximetry 99 03/11/25 16:32 Temperature 36.6 C 03/11/25 16:32 Pulse Rate 85 03/11/25 16:32 Respiratory Rate 16 03/11/25 16:32 Blood Pressure 106/78 03/11/25 16:32 Pulse Oximetry 99 03/11/25 16:32 reviewed MDM - Skin/Abscess/Foreign Bdy MDM Narrative Medical decision making narrative: no lesions noted concerning for shingles. has moles, skin tags all along bra line to chest and back. pt is well appearing. in no pain distress. Will follow up with web operations manager as needed. Discharge Plan Discharge Clinical Impression: Multiple skin tags, Numerous moles Patient Disposition: Home Condition: Stable Additional Instructions: You have multiple moles/skin tags around your bra area. This is common area to develop moles/skin tags due to friction from bra straps and skin folds. I do not see any concerns for shingles. Follow up with your web operations manager as needed. Patient Language: [place] Prescriptions: No Action sumatriptan succinate [Imitrex] 100 mg tablet See Rx Instructions PO .COMPLEX Qty: 14 6RF Rx Instructions: take 1 tab at onset of headache; if no relief, may repeat 1 tab after at least 2 hrs; max = 2 tabs/24 hrs PO may be taken with 1 tablet of 500 mg and naproxen Fish Oil PO Rx Instructions: 1 Table spoon daily calcium citrate-vitamin D3 [Citracal + D Maximum] 315 mg-6.25 mcg (250 unit) tablet 1 tablet PO BID cholecalciferol (vitamin D3) 10 mcg/drop (400 unit/drop) drops 10 mcg PO DAILY Rx Instructions: Ortho Brand atorvastatin [Lipitor] 10 mg tablet 10 mg PO QHS Qty: 90 1RF levothyroxine 50 mcg tablet 50 mcg PO DAILY vitamin B complex [B Complex-Vitamin B12] Tablet 1 tablet PO DAILY Follow-up/Referrals: Peggy Zazueta DO [Primary Care Provider] - Time of Disposition: 16:44
[2025-03-11 16:32] VITALS: BP 106/78; PULSE 85; RESP 16; TEMP 36.6; O2SAT 99
== END 2025-03-11 16:46 | disposition home or self-care (01) ==
PROVIDERS: Emergency Provider Nurse Practitioner Family; PCP Family Medicine
DX: L91.8 Other hypertrophic disorders of the skin (principal); D22.9 Melanocytic nevi, unspecified; E11.9 Type 2 diabetes mellitus without complications; E03.9 Hypothyroidism, unspecified
CPT/HCPCS: 99211; G0463

== ENCOUNTER 2025-04-14 10:22 | Outpatient (CLI) | payer MEDICARE, SELFPAY ==
--- NOTE | 2025-05-05 11:40 | WPDSLEEPSTUD ---
Sleep Study Date of Study: 04/14/25 Ordering Provider: JOSE FRANCISCO Garvey Interpreting Physician: Tessie Rebolledo MD Sleep Study Type: Split Polysomnogram Height: 1.52 m Weight: 86.183 kg Body Mass Index: 37.0 Neck Circumference (inches): 13 [place]: 18 Reason for Sleep Study Hypersomnolence Sleep History this history is taken from her previous sleep questionnaire 10/04/2020; Moira Cuevas is a 60-year-old female who falls asleep quickly but cannot stay asleep. She can hear herself snoring and this wakes her up. She has had this problem for years. Her dentist tells her that she grinds her teeth. SHe is sleepy around 3:00 p.m. daily, and takes a 30 minute nap when she is able. She drinks Sleepy Time tea at night. Her snoring is frequently loud enough that others complain about it. She occasionally awakens at night with heartburn, belching or coughing. She does not awaken from sleep feeling short of breath. She rarely has trouble sleep with a cold. She does not gasp for breath at night. She does not have breathing problems at night reported to her by others. She constantly sweats excessively at night. She does not notice her heart pounding or beating irregularly at night. She frequently falls asleep during the day, not involuntarily and not while driving. She does not fall asleep while exerting physical effort. She does not have loss of muscle tone was strong emotion. 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 She frequently has vivid dreamlike scenes upon awakening or falling asleep. She is not afraid to go to sleep. She does not have nightmares. She frequently remembers her dreams. She frequently has racing thoughts. She does not feel sad or depressed. She frequently has anxiety. She frequently has muscular tension. She does not notice parts of her body jerking, does not kick at night, does not have crawling and aching feelings in her legs at night and does not have any kind of leg pain during the night. She frequently has morning jaw pain. She frequently grinds her teeth at night which has been confirmed by her dentist. She rarely is bothered by pain during the day, rarely is awakened by pain at night. She occasionally wakes up feeling stiff in the morning, rarely with sore or achy muscles. She frequently wakes up with pain in the neck and spine. She has fatigue and headaches. She has gained 8 lb in the last year. Normal bedtime is 9:00 p.m. usually falling asleep within 5 minutes, waking up between 4 and 6 times at night to urinate, get a drink of water, may watch television for a while. She wakes up at times feeling hot or coughing. These episodes of wake may last 15-20 minutes. her weekend schedule is the same, going to bed at 9:00 p.m. sometimes waking up at 7:00 a.m. or after. She estimates getting 7-8 hours of interrupted sleep. she takes naps in the afternoon or evening. A short nap may be refreshing. She is usually drowsy in the morning for 1 hour or longer. She frequently wakes with morning headaches. She occasionally has memory and concentration problems. She rarely awakens feeling refreshed. Habits: Never smoked tobacco. Caffeine 2 cups in the morning. Decaf tea before bed. Alcohol rarely once a week. No recreational drugs. [facility] Past Medical History Medical History Syncope and collapse determined by examination Migraine syndrome History of diabetes mellitus History of hypothyroidism Surgical History Surgical History S/P section 1986, 1987 Family History Family History Mother Family history of osteoporosis Family history of Alzheimer's disease Family history of dementia, Onset Age: 80 Father Hypertension Family history of elevated blood lipids Family history of cardiovascular disease Family history of renal failure Family history of kidney disease, Onset Age: 75 Sibling Family history of cardiovascular disease Grandparent Cerebrovascular accident Social History Social History Smoking status: Never smoker Alcohol intake: current Alcohol use details: socially Substance use: never Substance use type: does not use Do You Feel Safe in your Home?: Yes Lack of Transportation: No Lack of Food: Never True Current Housing: I Have Housing Concerned About Future Housing: No Difficulty Paying Gas/Electric Bills: No Difficulty Paying for Meds: No Currently Unemployed: No Education: Associate Degree Difficulty w/ Childcare or Family Care: No Living arrangements: with family Occupation/Education: occupation Gender identity (if verbalized by the patient): Female Sexual Orientation (if Verbalized by the Patient): Straight or Heterosexual Spiritual care concerns: No Agree to blood products: Yes Medications Home Medications ?Medication ?Instructions ?Recorded ?Confirmed ?Type vitamin B complex (B 1 tablet PO DAILY 07/24/23 03/30/25 History Complex-Vitamin B12 tablet) Fish Oil 1,000 mg 11/21/24 03/30/25 History cholecalciferol (vitamin D3) 10 10 mcg PO DAILY 11/21/24 03/30/25 History mcg/drop (400 unit/drop) oral drops levothyroxine 50 mcg tablet 50 mcg PO DAILY 12/10/24 03/30/25 History sumatriptan succinate 100 mg See Rx Instructions PO .COMPLEX 01/21/25 03/30/25 Rx tablet (Imitrex) #14 tabs estrogen pellets 03/17/25 03/30/25 History progesterone micronized 100 mg 100 mg PO QPM 03/17/25 03/30/25 History capsule denosumab 60 mg/mL subcutaneous 60 mg subcut [id number] 03/30/25 03/30/25 History syringe (Prolia) semaglutide 2.5 mg/mL subcutaneous 10 mg subcut WEEKLY 03/30/25 03/30/25 History solution Sleep Procedure A split night polysomnogram using the Nanosphere multi-channel system recorded the standard physiologic parameters including EEG, EOG, submentalis EMG, anterior tibialis EMG, EKG, body position, nasal and oral airflow using nasal pressure sensor and thermistor. Respiratory parameters of chest and abdominal movements were recorded with Respiratory Inductance Plethysmography belts. Oxygen saturation was recorded by pulse oximetry. Video monitoring was also performed. Sleep stages, periodic limb movements, and EEG arousals were scored in 30 second epochs according to the criteria of the AASM Scoring Manual. The Apnea-Hypopnea Index was calculated using CMS guidelines for definition of hypopnea while scoring respiratory events. After the baseline portion the patient met criteria for a titration with an AHI of 8.2 and desaturation to 82%. She was initially fitted with a small ResMed AirFit N30 I nasal mask, later changed to a medium ResMed AirFit F 40 fullface mask due to air leaks from her mouth in the supine position. Initial pressure was CPAP 5 cm, increased to 6 cm in lateral REM, mask was then changed to the F 40 fullface mask, CPAP increased to 8 cm, 10 cm, final pressure was 12 cm. At 12 cm, the patient spent 82.5 minutes in bed, 4.5 minutes awake, 58.5 minutes in non-REM and 19.5 minutes in REM. Sleep efficiency was 94.5%. She had REM in the supine position. The residual apnea-hypopnea index was 0. The lowest saturation was 90%. This is the optimal pressure. Sleep Architecture During the diagnostic portion of the study, the total recording time was 150.5 minutes. The total sleep time was 131.5 minutes. Sleep latency was 4.5 minutes. REM latency was 86.5 minutes. Sleep Efficiency was 87.4%. The patient had 5 awakenings for an awakening index of 2.3. Wake after sleep onset time was 14.5 minutes. The patient spent 9.0 minutes, 6.8% of total sleep time in Stage N1. The patient spent 106.5 minutes, 81.0% in Stage N2. The patient spent 9.0 minutes, 6.8% in Stage N3. The patient spent 7.0 minutes, 5.3% in Stage REM sleep. At 12:55:36 AM the patient was placed on PAP treatment and was titrated at pressures ranging from 5* cm/H20 with supplemental oxygen at - up to 12* cm/H20 with supplemental oxygen at -. During the treatment portion of the study, the total recording time was 304.9 minutes. The total sleep time was 245.5 minutes. Sleep latency was 10.0 minutes. REM latency was 82.0 minutes. Sleep Efficiency was 80.5%. Wake after Sleep Onset time was 49.0 minutes. The patient spent 38.0 minutes, 15.5% of total sleep time in Stage N1. The patient spent 172.5 minutes, 70.3% in Stage N2. The patient spent 0.0 minutes, 0.0% in Stage N3. The patient spent 35.0 minutes, 14.3% in Stage REM. Respiratory Analysis During the diagnostic portion of the study, the patient had 16 hypopneas, no obstructive apneas, no mixed apneas, and 2 central apneas for an overall Apnea Hypopnea Index of 8.2 events per hour. The REM Apnea Hypopnea Index was 42.9. The NREM Apnea Hypopnea Index was 6.3. The patient had a Central Apnea Hypopnea Index of 0.9. There were no Respiratory Effort Related Arousals. The Respiratory Disturbance Index is 10.5 events per hour. There was no evidence of Kody-Palacios Respirations. During the treatment portion of the study, the patient had 26 hypopneas, no obstructive apneas, no mixed apneas, and 1 central apnea for an overall Apnea Hypopnea Index of 6.6 events per hour. The REM Apnea Hypopnea Index was 0. The NREM Apnea Hypopnea Index was 7.7. The patient had a Central Apnea Hypopnea Index of 0.2. There were no Respiratory Effort Related Arousals. The Respiratory Disturbance Index is 11.0 events per hour. There was no evidence of Kody-Palacios Respirations. Arousals During the diagnostic portion of the study, there were a total of 25 arousals for an arousal index of 11.4. There were 8 respiratory arousals for an index of 3.7. There were no periodic limb movement arousals. There were no isolated limb movement arousals. There were 17 spontaneous arousals for an index of 7.8. During the treatment portion of the study, there were a total of 75 arousals for an index of 18.3. There were 24 respiratory arousals for an index of 5.9. There were no periodic limb movement arousals. There was 1 isolated limb movement arousal for an index of 0.2. There were 50 spontaneous arousals for an index of 12.2. Periodic Limb Movements During the diagnostic portion of the study, the patient had 1 isolated limb movement with an index of 0.5. The patient had no periodic limb movements. The patient had a total of 1 limb movements with a total limb movement index of 0.5. During the treatment portion of the study, the patient had 6 isolated limb movements with an index of 1.5. The patient had no periodic limb movements. The patient had a total of 6 limb movements with a total limb movement index of 1.5. Oximetry Data During the diagnostic portion of the study, the patient had an average oxygen saturation of 93% in wake with a minimum oxygen saturation of 83% and a maximum oxygen saturation of 98%. The patient had an average oxygen saturation of 91.8% in sleep with a minimum oxygen saturation of 82% and a maximum oxygen saturation of 98%. The patient had 34 oxygen desaturations resulting in an Oxygen Desaturation Index of 15.5. The patient spent 2.4 minutes, 1.6% of total sleep time with an oxygen saturation less than 88%. During the treatment portion of the study, the patient had an average oxygen saturation of 93.5% in wake with a minimum oxygen saturation of 86% and a maximum oxygen saturation of 99%. The patient had an average oxygen saturation of 92.5% in sleep with a minimum oxygen saturation of 85% and a maximum oxygen saturation of 98%. The patient had 58 oxygen desaturations resulting in an Oxygen Desaturation Index of 14.2. The patient spent 6.7 minutes, 2.2% of total sleep time with an oxygen saturation less than 88%. Snoring Profile During the diagnostic portion, snoring was mild to moderate and continuous. At the optimal pressure, snoring was eliminated. Cardiac Profile During the diagnostic portion of the study, the EKG showed normal sinus rhythm. The average pulse rate was 78.3 bpm, minimum pulse rate was 69 bpm. The maximum pulse rate was 97 bpm. No arrhythmias noted. During the treatment portion of the study, the EKG showed normal sinus rhythm, average pulse rate was 82.1 bpm, minimum pulse rate was 73 bpm, and the maximum pulse rate was 102 bpm. No arrhythmias noted. EEG Profile Unremarkable, no evidence of seizures. Assessment and Plan Assessment and Plan (1) Obstructive sleep apnea: Code(s): G47.33 - Obstructive sleep apnea (adult) (pediatric) Status: Acute Assessment and Plan: This split night sleep study on 04/14/2025 showed mild obstructive sleep apnea, the apnea-hypopnea index was 8.2 with desaturation 82% with mild to moderate snoring, successfully treated using CPAP 12 cm of water pressure and a medium ResMed AirFit F 40 fullface mask with heated humidity. At 12 cm, the patient spent 82.5 minutes in bed, 4.5 minutes awake, 58.5 minutes in non-REM and 19.5 minutes in REM. Sleep efficiency was 94.5%. She had REM in the supine position. The residual apnea-hypopnea index was 0. The lowest saturation was 90%. This is the optimal pressure. The patient should be prescribed this ResMed equipment as well as tubing, filters and reservoir. This should be used with all episodes of sleep. Compliance should be reviewed within 31-90 days of starting therapy for usage greater than 4 hours per night greater than 70% of the nights. The patient should be asked about symptoms such as excessive daytime sleepiness, quality of sleep, decreased nocturia, increased mental functioning such as memory, mood, and concentration. BMI is 37.1. Weight management is advised. Clinical data suggests that weight loss of 10% can reduce the severity of respiratory events and snoring and improve AHI by as much as 25%. Data The data obtained during this sleep study is adequate for interpretation. Certification This sleep study has been reviewed by a board certified sleep medicine physician.
[2025-05-20 15:28] VITALS: BMI 37.0
== END 2025-04-15 07:06 | disposition home or self-care (01) ==
LOC: ANHCSM 10:28
PROVIDERS: PCP Family Medicine; Visit Provider Physician Assistant
DX: G47.33 Obstructive sleep apnea (adult) (pediatric) (principal)
CPT/HCPCS: 95811

== ENCOUNTER 2025-05-29 13:04 | Emergency (ER) | payer MEDICARE, SELFPAY ==
--- NOTE | 2025-05-29 13:10 | ED_ITS ---
HPI - General Adult General Chief complaint: Urogenital-Female Stated complaint: BLOOD IN URINE Time Seen by Provider: 05/29/25 13:25 Source: patient, RN notes reviewed and old records reviewed Mode of arrival: ambulatory Limitations: no limitations History of Present Illness HPI narrative: 64-year-old female presents to the [facility] with concerns that when she wiped twice today she had red spots on the toilet paper. Patient is on hormone implants. Postmenopausal. Denies any burning, frequency or urgency with urination. Denies any CVA tenderness. Denies fevers. Denies abdominal pain, nausea or vomiting. Related Data Home Medications ?Medication ?Instructions ?Recorded ?Confirmed ?Last Taken ?Type vitamin B complex (B 1 tablet PO DAILY 07/24/23 0 03/30/25 08/07/23 History Complex-Vitamin B12 tablet) Fish Oil 1,000 mg 11/21/24 03/30/25 U nknown History cholecalciferol (vitamin D3) 10 10 mcg PO DAILY 03/30/25 Unknown History mcg/drop (400 unit/drop) oral drops estrogen pellets 03/17/25 03/30/25 Unknown H istory progesterone micronized 100 mg 100 mg PO QPM 03/17/25 03/30/25 Unknown History capsule denosumab 60 mg/mL subcutaneous 60 mg subcut [id number] 03/30/25 03/30/25 Unknown History syringe (Prolia) semaglutide 2.5 mg/mL subcutaneous 10 mg subcut WEEKLY 03/30/25 03/30/25 Unknown History solution Allergies Allergy/AdvReac Type Severity Reaction Status Date / Time No Known Allergies Allergy Verified 05/29/25 13:24 Review of Systems Review of Systems: All systems reviewed & are unremarkable except as noted in HPI and below Constitutional: Constitutional: Reports no additional constitutional complaints Genitourinary: Genitourinary: Reports as per HPI Musculoskeletal: Musculoskeletal: Reports no additional musculoskeletal complaints Integumentary/Breasts: Skin/Breast: Reports system reviewed and no additional complaints, except as docu PMFSH Past Medical History Medical History Syncope and collapse determined by examination Migraine syndrome History of diabetes mellitus History of hypothyroidism Surgical History Surgical History S/P section 1986, 1987 Family History Family History Mother Family history of osteoporosis Family history of Alzheimer's disease Family history of dementia, Onset Age: 80 Father Hypertension Family history of elevated blood lipids Family history of cardiovascular disease Family history of renal failure Family history of kidney disease, Onset Age: 75 Sibling Family history of cardiovascular disease Grandparent Cerebrovascular accident Social History Social History Smoking status: Never smoker Alcohol intake: current Alcohol use details: socially Substance use: never Substance use type: does not use Do You Feel Safe in your Home?: Yes Lack of Transportation: No Lack of Food: Never True Current Housing: I Have Housing Concerned About Future Housing: No Difficulty Paying Gas/Electric Bills: No Difficulty Paying for Meds: No Currently Unemployed: No Education: Associate Degree Difficulty w/ Childcare or Family Care: No Living arrangements: with family Occupation/Education: occupation Gender identity (if verbalized by the patient): Female Sexual Orientation (if Verbalized by the Patient): Straight or Heterosexual Spiritual care concerns: No Agree to blood products: Yes Comments At the time of my signature, I reviewed and agree with the nursing past medical, surgical, social, and family history. There is no relevant family history pertinent to the patient complaint. Exam Const: General: cooperative, healthy appearing, comfortable, no acute distress, well developed, alert and well nourished Nutritional Appearance: well nourished Orientation/consciousness: patient oriented x3 Limitations: no limitations HENMT: Head: normal to inspection Mouth: Yes Normal oral and palatal mucosa present, Yes lip normal, Yes tongue normal and Yes moist mucous membranes Eyes: General: appearance normal, both eyes and all related structures Alignment and Position: alignment normal Neck: Neck: normal visual inspection, full ROM, no lymphadenopathy and no meningeal signs Chest: Chest palpation & inspection: normal inspection of the chest Resp: Effort & Inspection: normal respiratory effort and able to speak in complete sentences Auscultation: clear to auscultation bilaterally, no crackles, no rales, no rhonchi and no wheezes Cardio: Rate: regular rate GI: GI Palp: No abdominal tenderness : General: Yes no CVA tenderness Skin: General skin exam: normal color and no rashes or lesions noted Neuro: General: patient oriented x3, gait normal, moves all extremities and no meningeal signs Cognition (Neuro): normal cognition Speech: normal speech Gait exam (Neuro): Normal gait present Extrem: General: normal to inspection, full ROM, capillary refill normal and normal gait Psych: Appearance: grossly normal and well kempt Mental Status: mental status grossly normal Speech and movement: Normal speech and movement present and Clear speech present Affect: normal affect Attitude: cooperative Course Course Level of Care: Express Care Visit Vital Signs Vital signs: Vital Signs Temperature 98.4 F 05/29/25 13:19 Pulse Rate 82 05/29/25 13:19 Respiratory Rate 16 05/29/25 13:19 Blood Pressure 122/78 05/29/25 13:19 Pulse Oximetry 99 05/29/25 13:19 Temperature 98.4 F 05/29/25 13:19 Pulse Rate 82 05/29/25 13:19 Respiratory Rate 16 05/29/25 13:19 Blood Pressure 122/78 05/29/25 13:19 Pulse Oximetry 99 05/29/25 13:19 Reviewed Medical Decision Making MDM Narrative Medical decision making narrative: Patient sitting in exam. Patient is nontoxic, vitals stable. Patient presents with blood on the toilet paper when she wiped x2 today. Patient with no other signs or symptoms. Patient's leukocytes, nitrites are n egative. Ketones negative. Will culture. Discussed and through joint decision making offered antibiotic, start today which she is declining at this time will wait for the culture results. States that she will follow-up with her artificial glass eye maker provider Patient was asking about kidney functions, discussed we have limited resources at this facility. Discussed what we do offer and will we do not offer which includes lab work, ultrasound. Patient verbalized understanding and would prefer to wait for the culture to return Will follow-up with artificial glass eye maker provider and primary care provider Discharge instructions reviewed with patient, as well as provided in writing per nursing staff. The instructions also include specific and strict return/GO TO THE ER as well as f/u information. All questions have been answered, and the patient deny any further questions with discharge and discharge plan. Some parts of this dictation were generated by voice recognition software and may contain typographical and/or grammatical inaccuracies. Differential Diagnosis Differential Diagnosis: Hematuria, UTI, a kidney stone, vaginal bleeding Medical Records Medical records reviewed: Yes I reviewed the external patient's medical records. Vital Signs Vital Signs: Vital Signs Temperature 98.4 F 05/29/25 13:19 Pulse Rate 82 05/29/25 13:19 Respiratory Rate 16 05/29/25 13:19 Blood Pressure 122/78 05/29/25 13:19 Pulse Oximetry 99 05/29/25 13:19 Temperature 98.4 F 05/29/25 13:19 Pulse Rate 82 05/29/25 13:19 Respiratory Rate 16 05/29/25 13:19 Blood Pressure 122/78 05/29/25 13:19 Pulse Oximetry 99 05/29/25 13:19 Reviewed Lab Data Lab results reviewed: Yes I reviewed the patient's lab results. Labs: Lab Results 05/29/25 Range/Units 13:24 POC Urine Color Yellow POC Urine Clarity Clear POC Urine pH 7.0 POC Ur Specif [place] 1.020 POC Urine Protein Trace (Negative) POC Ur Glucose (UA) Negative (Negative) POC Urine Ketones Negative (Negative) POC Urine Blood 2+ (Negative) POC Urine Nitrite Negative (Negative) POC Urine Bilirubin Negative (Negative) POC Urine Urobilinogen 1.0 POC U Leukocyte Esteras Negative (Negative) Reviewed Critical Care Time Critical Care Time Critical Care Time: No Discharge Plan Discharge Clinical Impression: Hematuria Qualifiers: Hematuria type: unspecified type Qualified Code(s): R31.9 - Hematuria, unspecified Patient Disposition: Home Condition: Stable Instructions: Antibiotic Form, Hematuria (ED) Additional Instructions: Today there was blood in your urine. We will send it for culture. If at that time any bacteria grows out we will notify you. We strongly encourage you to follow-up with your primary care provider if symptoms continue If you have a large amount of bleeding, abdominal pain, back pain please proceed to the nearest emergency room Patient Language: Hungarian Prescriptions: No Action estrogen pellets progesterone micronized 100 mg capsule 100 mg PO QPM sumatriptan succinate [Imitrex] 100 mg tablet See Rx Instructions PO .COMPLEX Qty: 14 6RF Rx Instructions: take 1 tab at onset of headache; if no relief, may repeat 1 tab after at least 2 hrs; max = 2 tabs/24 hrs PO may be taken with 1 tablet of 500 mg and naproxen Fish Oil 1,000 mg cholecalciferol (vitamin D3) 10 mcg/drop (400 unit/drop) drops 10 mcg PO DAILY Rx Instructions: Ortho Brand Prolia 60 mg/mL syringe 60 mg subcut [id number] semaglutide 2.5 mg/mL solution 10 mg subcut WEEKLY Patient Comments: Prescribed by weight loss clinic vitamin B complex [B Complex-Vitamin B12] Tablet 1 tablet PO DAILY levothyroxine 50 mcg tablet See Rx Instructions .ROUTE .COMPLEX Qty: 90 1RF Dose Instruction: TAKE 1 TABLET BY MOUTH DAILY Rx Instructions: TAKE 1 TABLET BY MOUTH DAILY Follow-up/Referrals: Moira Tapia, [employer] [Primary Care Provider, Internal Medicine] - 3 Days Clinical Impression: Hematuria Time of Disposition: 13:55
[2025-05-29 13:19] VITALS: BP 122/78; PULSE 82; RESP 16; TEMP 36.9; O2SAT 99
[2025-05-29 13:26] LABS: EDUAAPPEAR Clear; EDUABILI Negative (Negative); EDUABLOOD 2+ (Negative); EDUACOLOR1 Yellow; EDUAGLUCOSE Negative (Negative); EDUAKETONE Negative (Negative); EDUALEUKO Negative (Negative); EDUANITRATE Negative (Negative); EDUAPH 7.0; EDUAPROTEIN Trace (Negative); EDUASPGRAVITY 1.020; EDUAUROBILI 1.0
== END 2025-05-29 14:00 | disposition home or self-care (01) ==
PROVIDERS: Emergency Provider Nurse Practitioner; PCP Nurse Practitioner
DX: R31.9 Hematuria, unspecified (principal); E11.9 Type 2 diabetes mellitus without complications; E03.9 Hypothyroidism, unspecified
CPT/HCPCS: 81003; 87086; 87186; 99213; G0463

== ENCOUNTER 2025-06-01 14:47 | Outpatient (CLI) | payer MEDICARE, SELFPAY ==
--- NOTE | ~2025-06-01 | US_ITS ---
Clinical history:Abnormal uterine and vaginal bleeding EXAM:Ultrasound transvaginal TECHNIQUE:Multiple static grayscale images and color transvaginal images were obtained of the pelvis. Comparisons:None available FINDINGS: Uterus measures 7.0 x 3.4 x 5.6 cm. Endometrial stripe measures 9 mm. Blood flow is noted within the endometrium. Ovaries are not visualized. No free fluid in the pelvis. There is a subcentimeter nabothian cyst in the cervix. IMPRESSION: 1. Endometrial stripe is abnormally thickened for a patient who is postmenopausal with vaginal bleeding measuring 9 mm. Differential includes endometrial hyperplasia, endometrial polyp or endometrial cancer. 2. Ovaries were not visualized. Reviewed, dictated and finalized at location Q. IMPRESSION: 1. Endometrial stripe is abnormally thickened for a patient who is postmenopaus al with vaginal bleeding measuring 9 mm. Differential includes endometrial hype rplasia, endometrial polyp or endometrial cancer. 2. Ovaries were not visualized.
--- OUTSIDE RECORDS SUMMARY | 2025-06-01 15:37 | XMS_ITS | Clinical Summary ---
Author Organization [facility] Address [address] [place] [id number] Care Team Providers Care Hay Stacker Name Role Phone No, Physician Primary Care Provider [phone] Allergies No known active allergies Medications levothyroxine (SYNTHROID) 50 mcg tablet Take 1 tablet (50 mcg total) by mouth daily 03/01/2025 Active progesterone (PROMETRIUM) 100 mg capsule Take 1 capsule (100 mg total) by mouth 02/19/2025 Active SUMAtriptan (IMITREX) 100 mg tablet 01/21/2025 Active Active Problems Problem Noted Date Diagnosed Date Anosmia 04/17/2025 Encounters Date Type Department Care Team Description 04/17/2025 9:40 AM CDT Office Visit [facility] Medicine ENT [address] [facility] [address] [place] [address] [place] [address] Jigar Hernandez MD Anosmia (Primary Dx) from Last 3 Months Medical History Medical History Date Comments Sleep apnea 2020 Migraines 1989 Thyroid disease 1987 Family History Medical History Relation Name Comments Osteoarthritis Mother Gkoria Relation Name Status Comments Mother Gkoria Social History Tobacco Use Types Packs/Day Years Used Date Smoking Tobacco: Never Smokeless Tobacco: Never Tobacco Cessation:Counseling Given: Not Answered Alcohol Use Standard Drinks/Week Comments Never 0 (1 standard drink = 0.6 oz pur e alcohol) AUDIT-C Answer Date Recorded Q1: How often do you have a drink containing alcohol? Never 04/17/2025 Q2: How many drinks containi ng alcohol do you have on a typical day when you are drinking? Patient does not drink Q3: How often do you have si x or more drinks on one occasion? 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 Gender Identity Female 04/12/2025 5:54 PM CDT Sexual Orientation Straight 04/12/2025 5: 54 PM CDT Obstetrics History Last Filed Vital Signs Vital Sign Reading Time Taken Comments Blood Pressure 117/77 04/17/2025 9:34 AM CDT Pulse 67 04/17/2025 9:34 AM CDT Temperature - - Respiratory Rate - - Oxygen Saturation 98% 04/17/2025 9:34 AM CDT Inhaled Oxygen Concentration - - Weight 86.2 kg (190 lb) 04/17/2025 9:34 AM CDT Height 152.4 cm (5') 04/17/2025 9:34 AM CDT Body Mass Index 37.11 04/17/2025 9:34 AM CDT Plan of Treatment Health Maintenance Due Date Last Done Comments Breast Cancer Screening-Mammogram 1959 Cervical Cancer Screening 1959 Colon Cancer Screening-Colonoscopy 1959 Depression Screening 1959 Fall Risk Assessment 1959 Hepatitis C Screening 1959 Osteoporosis Screening-Bone Density Scan 1959 DTaP/Tdap/Td Vaccine (1 - Tdap) 1970 Hepatitis B Screening 1977 Zoster Vaccine (1 of 2) 2009 Well Visit 65+ 2024 Covid-19 Vaccine (4 - 2024-2 6 season) 2025 07/29/2021, 11/29/2020, 11/01/2020 Influenza Vaccine (#1) 2025 4, 06/18/2023, 06/23/2022, Additional history exists Pneumococcal vaccine 65+ Completed 12/10/2024 Insurance MEDICARE [employer] Care Teams Hay Stacker Relationship Specialty Start Date End Date No, Physician PCP - General 02/19/25
== END 2025-06-01 14:48 | disposition home or self-care (01) ==
PROVIDERS: PCP Nurse Practitioner; Visit Provider Nurse Practitioner
DX: N93.9 Abnormal uterine and vaginal bleeding, unspecified (principal)
CPT/HCPCS: 76830

== ENCOUNTER 2025-06-30 00:20 | Day surgery (SDC) | payer MEDICARE, SELFPAY ==
[2025-06-24 10:20] VITALS: BMI 35.7
--- NOTE | 2025-06-24 10:27 | PC.NURSE ---
[facility] has started construction of its new state of the art ER which will open Spring 2026. With this, we anticipate parking may be a challenge for some our surgical patients and families. Parking spaces are limited but are available for all Surgical, obstetrics, and ER patients sharing this lot. If you arrive and find you are having a hard time finding a parking space, please note that we understand the challenges, please drive around the hospital and park near Hospital Entrance 1. When you enter this entrance, you can ask a volunteer to direct or take you back to the surgical waiting area to check in. We appreciate everyone?s understanding of these expected challenges while we build for your future. Report to the Outpatient Waiting Room, entrance under the green pavilion located off [address], at time _0900am on date _06/30/25 . Planned Procedure Time: 1100am .? Time changes happen often and if your time is changed the preop area will call you the afternoon before. - You and your visitor will be asked to self-screen and do not enter if you have any COVID symptoms. Please call surgeon if you need to reschedule. - A mask is optional within the hospital at this time. Patients may have clear liquids (water, carbonated beverages, clear teas, apple juice) until 3 hours prior to surgery with a maximum of 20 ounces. - No food from midnight until time of surgery and no smoking, or chewing tobacco (or any form of nicotine). No chewing gum, candy or mints. ( 0800am) Take only the following medications with a SIP of water on the morning of surgery: Levothyroxine DO NOT STOP ANY OF YOUR OTHER PRESCRIPTION MEDICATIONS PRIOR TO SURGERY EXCEPT THE FOLLOWING Hold all vitamins and supplements for 3 days per anesthesiologist. Medications to discontinue per physician HOLD Semiglutide for 10 days prior per Anesthesia Date to take last dose 06/15/25 Please no make-up, nail estonian, hairspray, perfume, deodorant, or body powder the day of surgery.? No jewelry (including any body piercings) or valuables the day of surgery, leave them at home.? Please take a shower or bath the night before, or the morning of, surgery with an antibacterial soap.? Wear comfortable, loose fitting clothing.? - Jewelry must be removed prior to entering the operating room.? Rings and piercings that are not removed may be cut off. - The hospital will not accept responsibility for valuables.? - Please leave all valuables, including medications, at home the day of surgery. If you are going home after surgery, a licensed hack driver must drive you home.? - NO public transportation without another adult if you receive anesthesia. - We recommend that an adult stay with you for 24 hours following discharge. - We also recommend that you do not drive, make important decision, drink alcoholic beverages, or take any drugs that were not prescribed by your health care provider for at least 24 hours after your discharge time. Follow any additional instructions given to you from your surgeon. Telephone instructions given to ___Patient and asked if any additional questions and then verbalized understanding. Patient advised to call surgeon office or pre surgery nurse liaison [phone] if any additional questions.
[2025-06-30 09:00] VITALS: BP 116/76; PULSE 77; RESP 16; TEMP 37; O2SAT 99
[2025-06-30] MEDS: ACETAMINOPHEN 500 MG TABLET 1000 MG PO (09:25)
[2025-06-30] MEDS: LACTATED RINGERS 1,000 ML 30 ML IV CONT (09:25)
--- NOTE | 2025-06-30 09:29 | PM.IMHP ---
H&P: HPI History of Present Illness Date/Time: 06/30/25 09:29 Chief Complaint: postmenopausal bleeding Narrative: 65-year-old female who presents for hysteroscopy D&C regarding postmenopausal bleeding. Patient presented after an episode of postmenopausal bleeding. Vaginal ultrasound showed a thickened endometrial lining. Patient has been taking HRT with testosterone/ estradiol pellets and nightly progesterone. Review of Systems Cardiovascular: Cardiovascular: Denies chest pain, Denies leg edema, Denies palpitations, Denies dyspnea and Denies dyspnea on exertion Respiratory: Respiratory: Denies cough, Denies dyspnea and Denies dyspnea on exertion Gastrointestinal: Gastrointestinal: Denies abdominal pain, Denies constipation, Denies diarrhea, Denies nausea and Denies vomiting Genitourinary: Genitourinary: Denies hematuria, Denies urinary frequency, Denies dysuria, Denies pelvic pain, Denies urinary incontinence and Denies vaginal discharge Neurologic: Reports system reviewed and no additional complaints, except as documented Psychiatric: Psychiatric: Reports no additional psychiatric complaints Endocrine: Endocrine: Denies palpitations PMFSH Past Medical History Medical History BMI 35.0-35.9,adult Screening for breast cancer Screening mammogram, encounter for Screening for HPV (human papillomavirus) Menopausal and female climacteric states Encounter for screening colonoscopy Encounter for immunization (05/29/18) Syncope and collapse determined by examination Migraine syndrome History of diabetes mellitus History of hypothyroidism Surgical History Surgical History History of tubal ligation S/P section 1986, 1987 Family History Family History Mother Family history of osteoporosis Family history of Alzheimer's disease Family history of dementia, Onset Age: 80 Father Hypertension Family history of elevated blood lipids Family history of cardiovascular disease Family history of renal failure Family history of kidney disease, Onset Age: 75 Sibling Family history of cardiovascular disease Grandparent Cerebrovascular accident Social History Social History Smoking status: Never smoker Second hand tobacco smoke exposure: Yes Alcohol intake: current Alcohol use details: 1 per month Substance use: never Substance use type: does not use Do You Feel Safe in your Home?: Yes Lack of Transportation: No Lack of Food: Never True Current Housing: I Have Housing Concerned About Future Housing: No Difficulty Paying Gas/Electric Bills: No Difficulty Paying for Meds: No Currently Unemployed: No Education: Associate Degree Difficulty w/ Childcare or Family Care: No Living arrangements: with family Additional living arrangements comments: Occupation/Education: occupation 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 Instructions: Patient Condition sumatriptan succinate 100 mg See Rx Instructions PO .COMPLEX 01/21/25 06/24/25 Rx tablet (Imitrex) #14 tabs estrogen pellets See Rx Instructions .Route .3 mo 03/17/25 06/24/25 History progesterone micronized 100 mg 100 mg PO QPM 03/17/25 06/30/25 History capsule denosumab 60 mg/mL subcutaneous 60 mg subcut [id number] 03/30/25 06/24/25 History syringe (Prolia) levothyroxine 50 mcg tablet See Rx Instructions .Route 05/21/25 06/30/25 Rx .COMPLEX #90 tabs semaglutide 2.5 mg/mL subcutaneous 20 mg subcut WEEKLY 06/01/25 06/30/25 History solution testosterone 25 mg implant pellet 25 mg implant .every 3 mos 06/15/25 06/24/25 History Allergies Allergy/AdvReac Type Severity Reaction Status Date / Time No Known Allergies Allergy Verified 06/30/25 09:29 Exam Const: General: no acute distress Eyes: EOM: EOMs intact bilaterally Neck: Neck: supple Thyroid: thyroid normal Chest: Breast/axilla inspection: normal inspection of the breasts Breast/axilla palpation: normal palpation of the breasts, normal palpation of the axillae and no axillary lymphadenopathy Resp: Effort & Inspection: normal respiratory effort Auscultation: clear to auscultation bilaterally Cardio: Rate: regular rate Rhythm: regular rhythm GI: Inspection: non-distended GI Palp: Yes Soft to palpation, No Tenderness to palpation present (GI) and No Guarding due to palpation present (GI) Auscultation: normal bowel sounds : General: No bladder normal to palpation External Female Exam: normal external appearance Speculum Exam - Vagina: normal vaginal discharge and No vaginal bleeding Speculum Exam - Cervix: nontender Bimanual exam- vagina & uterus: No bladder normal to palpation and No Cervical tenderness present OB/external & speculum: No vaginal bleeding Skin: General skin exam: normal color and no rashes or lesions noted Neuro: Cognition (Neuro): normal cognition Speech: normal speech Extrem: General: normal to inspection and no edema Psych: Mental Status: mental status grossly normal Affect: normal affect Assessment and Plan Assessment and plan (1) Postmenopause bleeding: Code(s): N95.0 - Postmenopausal bleeding Status: Acute Assessment and Plan: 65-year-old female who presents for hysteroscopy D&C regarding postmenopausal bleeding Patient had an episode of postmenopausal bleeding Pelvic ultrasound showed thickened endometrium at 9 mm Patient currently taking hormone therapy with estradiol, testosterone, progesterone Recommended tissue sampling Discussed EMB versus hysteroscopy D and C Risks and benefits of each reviewed Will proceed with hysteroscopy, D&C for postmenopausal bleeding (2) Thickened endometrium: Code(s): R93.89 - Abnormal findings on diagnostic imaging of other specified body structures Status: Acute
[2025-06-30 09:36] LABS: Hematocrit 44.4 % (37.0-47.0); Hemoglobin 14.4 g/dL (12.0-15.0)
--- NOTE | 2025-06-30 09:45 | P.PNAN_ITS ---
Anes - Initial Pre Proc Eval Procedure: Operation Date: 06/30/25 11:00 Proposed Procedures p Hysteroscopy, Dilation and Curettage - Subhash Christina MD Date/Time: 06/30/25 09:45 Surgeon: Subhash Christina MD Pre Op Diagnosis: post menopausal bleeding Patient Data Age: 65 Gender: F Height: 1.52 m Weight: 84.6 kg Last Vital Signs Temp 37.0 C 06/30/25 09:00 Pulse 77 06/30/25 09:00 Resp 16 06/30/25 09:00 BP 116/76 06/30/25 09:00 Pulse Ox 99 06/30/25 09:00 O2 Del Method Room Air 06/30/25 09:00 Allergies Allergy/AdvReac Type Severity Reaction Status Date / Time No Known Allergies Allergy Verified 06/30/25 09:29 Home Medications ?Medication ?Instructions ?Recorded ?Confirmed ?Type Fish Oil 1,000 mg PO DAILY 11/21/24 1 History Held on 06/24/25. Instructions: Patient Condition sumatriptan succinate 100 mg See Rx Instructions PO .C OMPLEX 01/21/25 06/24/25 Rx tablet (Imitrex) #14 tabs estrogen pellets See Rx Instructions .Route . 3 mo 03/17/25 06/24/25 History progesterone micronized 100 mg 100 mg PO QPM 03/17/25 06/30/25 History capsule denosumab 60 mg/mL subcutaneous 60 mg subcut [id number] 03/30/25 06/24/25 History syringe (Prolia) levothyroxine 50 mcg tablet See Rx Instructions .Route 05/21/25 06/30/25 Rx .COMPLEX #90 tabs semaglutide 2.5 mg/mL subcutaneous 20 mg subcut WEEKLY 06/01/25 06/30/25 History solution testosterone 25 mg implant pellet 25 mg implant .every 3 mos 06/15/25 06/24/25 History Laboratory Tests 06/30/25 09:15 Hgb 14.4 g/dL (12.0-15.0) Hct 44.4 % (37.0-47.0) Patient hx anesthesia problems: none Family hx anesthesia problems: none Results Review: All pre-operative results and documents have been reviewed as part of the pre- operative evaluation. [facility] Past Medical History Medical History BMI 35.0-35.9,adult Screening for breast cancer Screening mammogram, encounter for Screening for HPV (human papillomavirus) Menopausal and female climacteric states Encounter for screening colonoscopy Encounter for immunization (05/29/18) Syncope and collapse determined by examination Migraine syndrome History of diabetes mellitus History of hypothyroidism Surgical History Surgical History History of tubal ligation S/P section 1986, 1987 Family History Family History Mother Family history of osteoporosis Family history of Alzheimer's disease Family history of dementia, Onset Age: 80 Father Hypertension Family history of elevated blood lipids Family history of cardiovascular disease Family history of renal failure Family history of kidney disease, Onset Age: 75 Sibling Family history of cardiovascular disease Grandparent Cerebrovascular accident Social History Social History Smoking status: Never smoker Second hand tobacco smoke exposure: Yes Alcohol intake: current Alcohol use details: 1 per month Substance use: never Substance use type: does not use Do You Feel Safe in your Home?: Yes Lack of Transportation: No Lack of Food: Never True Current Housing: I Have Housing Concerned About Future Housing: No Difficulty Paying Gas/Electric Bills: No Difficulty Paying for Meds: No Currently Unemployed: No Education: Associate Degree Difficulty w/ Childcare or Family Care: No Living arrangements: with family Additional living arrangements comments: Occupation/Education: occupation 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- [employer] Gender identity (if verbalized by the patient): Female Sexual Orientation (if Verbalized by the Patient): Straight or Heterosexual Spiritual care concerns: No Agree to blood products: Yes Anes - Eval Final PreProcedure Day of Procedure 06/30/25 09:45 Patient weight: obese Heart: regular rate and rhythm Lungs: clear to auscultation Airway: Mallampati scale class II Neurological: alert and oriented Last oral intake: >/= 8 hours ASA classification: III Emergent: no Anesthetic plan: proceed Anesthesia type and monitoring: general GIVS and standard monitoring Results Review: All pre-operative results and documents have been reviewed as part of the pre- operative evaluation. Informed Consent: The patient's anesthetic plan and its attendant risks and benefits were discussed with the patient/family/POA. Questions were solicited and answers provided to the satisfaction of the patient/family/POA.
--- NOTE | 2025-06-30 10:47 | WPDHPUPDATE1 ---
History and Physical Update Update Date/Time: 06/30/25 10:47 History and Physical has been reviewed, including an updated exam of the patient. There are NO changes in the patient's condition. Risks, benefits, and alternatives have been discussed and questions answered. Patient agrees to proceed with procedure.
--- NOTE | 2025-06-30 11:07 | S_PTH ---
PATIENT: Moira Cuevas LOC: [facility] U#:[id number] AGE/SX: 65/F ROOM: RE06/30/[address]: Subhash Christina MD : 1960 BED: DIS: 06/30/2025 SPEC #: [id number] RECD: 06/30/25 11:40 STATUS: CHARLES REQ #: [id number] SHILA: 06/30/25 11:[address]: Subhash Christina DEPT: [facility] Surgical RECD BY: Purvi Caballero ENTERED: 06/30/25 11:40 SP TYPE: Surgical OTHR DR: Moira Tapia APRN Tissues: A - Endometrial Curettings Procedures: Hematoxylin and Eosin Stain Gross and Microscopic Level 4
[2025-06-30 11:15] VITALS: BP 109/61; PULSE 76; RESP 14; O2SAT 96
--- NOTE | 2025-06-30 11:15 | W.PM.PROC2 ---
Procedure Note - Detailed Date of Procedure 06/30/25 Pre-op Diagnosis post menopausal bleeding Post-op Diagnosis Same Procedure Performed hysteroscopy dilation & curettage Surgeon Subhash Christina MD Anesthesia General Indications abnormal uterine bleeding Findings normal appearing intrauterine cavity. Normal tubal ostia bilaterally Description of Procedure Moira Cuevas presents for the above procedure for PMB. She was counseled as to the indications, risks, benefits, and alternatives to surgery, with the risks including bleeding, infection, damage to surrounding organs, VTE, and complications of anesthesia. Her verbal and written consent was obtained. PROCEDURE: The patient was taken to the OR and general anesthesia induced. She was prepped and draped in Yomi stirrups with support of the back and bilateral lower extremities. I/O catheterization performed of the bladder. The above findings were noted. A single tooth tenaculum was placed on the anterior lip of the cervix. The cervix was dilated with sequential Belem dilators. Hysteroscopy, using a normal saline medium, was performed and showed the above findings. Sharp uterine curettage was then performed and tissue placed on Telfa. The tenaculum was removed and hemostasis was observed. The patient tolerated the procedure well. Sponge, lap, and needle counts were correct. The patient had SCD's on throughout the case for VTE prophylaxis. The patient was taken to the recovery room in stable condition. Estimated Blood Loss 5 Drains No Packing No Pathology Yes (endometrial curettings ) Complications No immediate complications Condition Stable Disposition PACU [facility] Billing Surgery - Charge Forward: Surgery Billing
[2025-06-30 11:45] VITALS: BP 121/73; PULSE 67; RESP 18; O2SAT 99
[2025-06-30 12:15] VITALS: BP 116/72; PULSE 60; RESP 18; O2SAT 99
== END 2025-06-30 12:22 | disposition home or self-care (01) ==
PROVIDERS: PCP Nurse Practitioner; Visit Provider Student in an Organized Health Care Education/Training Program
PROC: 0U5B8ZZ Destruction of Endometrium, Via Natural or Artificial Opening Endoscopic (ICD-10-PCS; CPT 58563; principal; 2025-06-30 11:00)
DX: N95.0 Postmenopausal bleeding (principal); E66.9 Obesity, unspecified; Z68.36 Body mass index [BMI] 36.0-36.9, adult
CPT/HCPCS: 58558; 36415; 85014; 85018; 88305; A9270; J2250; J2270; J2704; J7120

== ENCOUNTER 2025-08-31 10:46 | Outpatient (CLI) | payer MEDICARE, SELFPAY ==
--- OUTSIDE RECORDS SUMMARY | 2025-08-31 11:20 | XMS_ITS | Clinical Summary ---
Author Organization [facility] Address [address] [place] [phone] Care Team Providers Care Shell Plater Name Role Phone No, Physician Primary Care Provider [phone] Allergies No known active allergies Medications levothyroxine (SYNTHROID) 50 mcg tablet Take 1 tablet (50 mcg total) by mouth daily 03/01/2025 Active progesterone (PROMETRIUM) 100 mg capsule Take 1 capsule (100 mg total) by mouth 02/19/2025 Active SUMAtriptan (IMITREX) 100 mg tablet 01/21/2025 Active Active Problems Problem Noted Date Diagnosed Date Anosmia 04/17/2025 Medical History Medical History Date Comments Sleep apnea 2020 Migraines 1990 Thyroid disease 1988 Family History Medical History Relation Name Comments [...] on file 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 Gender Identity Female 04/12/2025 5:54 PM CDT Sexual Orientation Straight 04/12/2025 5: 54 PM CDT Last Filed Vital Signs Vital Sign Reading [...] Last Done Comments Breast Cancer Screening-Mammogram 1960 Colon Cancer Screening-Colonoscopy 1959 Depression Screening 1959 Fall Risk Assessment 1959 Hepatitis C Screening 1959 Osteoporosis Screening-Bone Density Scan 1959 DTaP/Tdap/Td Vaccine (1 - Tdap) 1970 Hepatitis B Screening 1977 Zoster Vaccine (1 of 2) 2009 Well Visit 65+ 2024 Covid-19 Vaccine ( - 2024-2 6 season) 2025 07/29/2021, 11/29/2020, 11/01/2020 Influenza Vaccine (#1) 2025 , 06/18/2023, 06/23/2022, Additional history exists Pneumococcal vaccine 65+ Completed 12/10/2024 Insurance MEDICARE [employer] Care Teams Shell Plater Relationship Specialty Start Date End Date No, Physician PCP - General 02/19/25
[2025-08-31 11:58] LABS: Influenza A QL RT-PCR Positive (Negative); Influenza B QL RT-PCR Negative (Negative); RSV RNA, RT-PCR Negative (Negative); SARS-CoV-2 RNA PCR Negative (Negative)
== END 2025-08-31 10:47 | disposition home or self-care (01) ==
PROVIDERS: PCP Internal Medicine; Visit Provider Nurse Practitioner
DX: Z20.822 Contact with and (suspected) exposure to COVID-19 (principal); R50.9 Fever, unspecified
CPT/HCPCS: 87637